=== PATIENT | female | born 1950 | race African-American/Black ===

== ENCOUNTER 2021-01-17 09:22 | Outpatient (CLI) | payer MEDICARE, SELFPAY ==
[2021-01-17 09:56] LABS: Basophils Percent Auto 0.5 % (0.2-1.2); Eosinophils Absolute Auto 0.4 K/mm3 (0-0.3); Eosinophils Percent Auto 5.2 % (0-4.4); Hematocrit 41.9 % (37.0-47.0); Hemoglobin 13.2 g/dL (12.0-15.0); Immature Granulocyte Absolute 0.02 K/mm3 (0.00-0.031); Immature Granulocyte Percent A 0.3 % (0-0.5); Lymphocytes Absolute Auto 2.86 K/mm3 (0.9-3.2); Lymphocytes Percent Auto 37.3 % (18.3-44.2); Mean Corpuscular HGB Conc 31.5 g/dl (32-36); Mean Corpuscular Hemoglobin 29.3 pg (26-34); Mean Corpuscular Volume 93.1 fl (80-100); Monocytes Absolute Auto 0.8 K/mm3 (0.1-0.6); Neutrophils Absolute Auto 3.5 K/mm3 (1.3-6.7); Neutrophils Percent Auto 45.7 % (45.5-73.1); Platelet Count Result 193 k/mm3 (150-375); Red Cell Distribution Width 15.1 % (11.5-14.5); White Blood Count 7.7 K/mm3 (4.5-10.0)
[2021-01-17 10:26] LABS: Alanine Aminotransferase 26 U/L (4-35); Albumin Level 4.4 g/dL (3.5-5.1); Alkaline Phosphatase 79 U/L (38-126); Anion Gap 4 mmol/L (8-16); Aspartate Amino Transferase 36 U/L (14-36); Bilirubin,Total 0.4 mg/dL (0.2-1.3); Blood Urea Nitrogen 21 mg/dL (7-17); Calcium 9.2 mg/dL (8.4-10.2); Carbon Dioxide 35 mmol/L (22-30); Chloride 105 mmol/L (98-107); Cholesterol 195 mg/dL (0-200); Estimated Glomerular Filt Rate > 60; Glucose 107 mg/dL (65-105); HDL Direct 49 mg/dL; Potassium 4.1 mmol/L (3.4-5.0); Sodium 144 mmol/L (137-145); Triglycerides 68 mg/dL (<150)
[2021-01-17 10:40] LABS: LDL Cholesterol Direct 122 mg/dL
[2021-01-17 11:06] LABS: Vitamin D 25 Hydroxy < 12.8 ng/mL
== END 2021-01-17 09:23 | disposition home or self-care (01) ==
LOC: ANHLAB 09:27
PROVIDERS: PCP Family Medicine; Visit Provider Family Medicine
DX: G47.419 Narcolepsy without cataplexy (principal); Z00.00 Encounter for general adult medical examination without abnormal findings; E78.5 Hyperlipidemia, unspecified; I10 Essential (primary) hypertension; E55.9 Vitamin D deficiency, unspecified
CPT/HCPCS: 36415; 80053; 80061; 82306; 84443; 85025

== ENCOUNTER 2022-02-14 09:41 | Outpatient (CLI) | payer MEDICARE, SELFPAY ==
--- NOTE | 2022-02-14 10:17 | ECHO_ITS ---
Patient Info Name: Peggy Weston Age: 71 years : 1950 Gender: Female Ht: 65 in Wt: 208 lbs BSA: 2.12 m2 HR: 81 bpm BP: 135 / 74 mmHg Technical Quality: Good Exam Date: 02/14/2022 10:36 AM Exam Location: [facility] Patient Status: Outpatient Admit Date: 02/14/2022 Staff Ordering Physician: Reynaldo Dowell DO Solution Make Up Operator: Atilio Lagos RDCS, RT Attending Provider: Reynaldo Dowell DO Referring Physician: Jose F Farmer MD; Exam Type: CA echo doppler color flow Study Info Indications I48.0 - Paroxysmal atrial fibrillation Complete two-dimensional, color flow and Doppler transthoracic echocardiogram is performed. Strain analysis performed. Summary 1. Complete two-dimensional, color flow and Doppler transthoracic echocardiogram is performed. 2. Left ventricular chamber dimension is normal. 3. Left ventricular systolic function is normal, estimated at 60-65%. 4. There is mildly increased left ventricular wall thickness. 5. The left ventricular diastolic function is grade II diastolic dysfunction. 6. E/e' 9 is minimally elevated. 7. Global longitudinal strain is abnormal at -12.4%. 8. Left atrial chamber dimension is mildly enlarged. 9. The mitral valve has moderately calcified annulus. 10. There is moderate tricuspid valve regurgitation. 11. No pulmonary hypertension, estimated pulmonary arterial systolic pressure is 36 mmHg. Left Ventricle E/e' 9 is minimally elevated. Global longitudinal strain is abnormal at -12.4%. Left ventricular chamber dimension is normal. Left ventricular systolic function is normal, estimated at 60-65%. There is mildly increased left ventricular wall thickness. The left ventricular diastolic function is grade II diastolic dysfunction. Right Ventricle Right ventricular systolic function is normal and with normal TAPSE 2.2 cm. Right ventricular chamber dimension is normal. Left Atria Left atrial chamber dimension is mildly enlarged. Right Atria Right atrial chamber dimension is normal. Aortic Valve The aortic valve is trileaflet. There is no aortic valve stenosis. There is no aortic valve regurgitation. Pulmonic Valve There is no pulmonic regurgitation. Mitral Valve The mitral valve has moderately calcified annulus. There is no mitral valve stenosis. There is no mitral valve regurgitation. Tricuspid Valve There is moderate tricuspid valve regurgitation. No pulmonary hypertension, estimated pulmonary arterial systolic pressure is 36 mmHg. Pericardium/Pleural There is no pericardial effusion. Inferior Vena Cava Normal inferior vena cava with >50% collapse upon inspiration consistent with normal right atrial pressure, 5 mmHg. Aorta The aortic root size at the sinus of Valsalva is normal. Left Ventricular Outflow Tract Name Value Normal LVOT 2D LVOT Diameter 2.0 cm LVOT Doppler LVOT Peak Gradient 5 mmHg LVOT Mean Gradient 3 mmHg LVOT VTI 22 cm LVOT VTI/AV VTI Ratio 0.8 LVOT Stroke Volume
== END 2022-02-14 09:42 | disposition home or self-care (01) ==
PROVIDERS: PCP Family Medicine; Visit Provider Internal Medicine Cardiovascular Disease
DX: I48.0 Paroxysmal atrial fibrillation (principal); I08.1 Rheumatic disorders of both mitral and tricuspid valves
CPT/HCPCS: 93306

== ENCOUNTER 2022-05-03 12:07 | Outpatient (CLI) | payer MEDICARE, SELFPAY ==
--- NOTE | ~2022-05-03 | XR_ITS ---
EXAM: XR hip BI 2V w AP pelvis DATE: 05/03/2022 12:29 HISTORY: M25.551 - Pain, BILATERAL HIP, NO TRAUMA . COMPARISON: None available. FINDINGS: Normal mineralization. No fracture or dislocation. No lytic or blastic lesion. Degenerativ e changes in the lumbar spine. Mild bilateral SI joint change. Mild bilateral superior hip joint spac e narrowing. No erosion or periosteal change. Soft tissues within normal limits. IMPRESSION: Mild bilateral hip osteoarthritis. Reviewed, dictated and finalized at location K.
== END 2022-05-03 12:08 | disposition home or self-care (01) ==
LOC: ANHIMG 12:07
PROVIDERS: PCP Family Medicine; Visit Provider Family Medicine
DX: M16.0 Bilateral primary osteoarthritis of hip (principal)
CPT/HCPCS: 73521

== ENCOUNTER 2022-05-05 10:42 | Outpatient (CLI) | payer MEDICARE, SELFPAY ==
--- NOTE | ~2022-05-05 | MM_ITS ---
EXAMINATION: MM screening [facility] BI w [place] HISTORY: Screening mammogram, family history of breast cancer in her sister. TECHNIQUE: Craniocaudal and mediolateral oblique 3-D tomosynthesis images were obtained and synthetic 2-D images were generated. CAD analysis was submitted and interpreted. COMPARISON: 08/24/2019, 07/09/2018, 05/28/2017 BREAST PARENCHYMAL COMPOSITION: There are scattered areas of fibroglandular density. FINDINGS: RIGHT BREAST: There is no suspicious mass, calcification, or architectural distortion to suggest edith gnancy. There has been no significant interval change. LEFT BREAST: There is a possible mass in the anterior/middle third of the upper-outer quadrant of the breast 6.5 cm from the nipple. IMPRESSION: 1. Possible left breast mass. 2. Additional mammographic views and possible breast ultrasound are recommended. BI-RADS Category 0: Incomplete: Needs additional imaging evaluation. Reviewed, dictated and finalized at location A. IMPRESSION: 1. Possible left breast mass. 2. Additional mammographic views and possible breast ultrasound are recommended . BI-RADS Category 0: Incomplete: Needs additional imaging evaluation.
== END 2022-05-05 10:43 | disposition home or self-care (01) ==
LOC: ANHIMG 10:43
PROVIDERS: PCP Family Medicine; Visit Provider Family Medicine
DX: Z12.31 Encounter for screening mammogram for malignant neoplasm of breast (principal); R92.8 Other abnormal and inconclusive findings on diagnostic imaging of breast
CPT/HCPCS: 77063; 77067

== ENCOUNTER 2022-05-23 12:38 | Outpatient (CLI) | payer MEDICARE, SELFPAY ==
--- NOTE | ~2022-05-23 | MMUS_ITS ---
EXAMINATION: MM diagnostic ricci LT w [place], US breast LT limited HISTORY: Possible mass reported in anterior/middle third of upper outer quadrant of left breast 6.5 c m from nipple on 05/05/2022 screening mammogram TECHNIQUE: Additional 3-D tomosynthesis images of the left breast were performed and synthetic 2-D im ages were generated. CAD analysis was submitted and interpreted. High resolution upper outer quadrant left breast ultrasound was performed. COMPARISON: 05/05/2022 screening mammogram FINDINGS: MAMMOGRAPHIC FINDINGS: Circumscribed approximately 3.5 x 5.9 mm opacity is noted in the upper outer quadrant near junction o f the anterior middle thirds of the left breast. ULTRASOUND:3.7 x 5.5 mm parallel circumscribed sonolucency at 3:00, consistent with simple cyst, like ly corresponding to the mammographic finding. Benign-appearing left axillary lymph nodes are noted. IMPRESSION: 1. Benign findings 2. Routine mammographic screening is recommended BI-RADS Category 2: Benign finding(s). Reviewed, dictated and finalized at location A. IMPRESSION: 1. Benign findings 2. Routine mammographic screening is recommended BI-RADS Category 2: Benign finding(s).
== END 2022-05-23 12:39 | disposition home or self-care (01) ==
PROVIDERS: PCP Family Medicine; Visit Provider Nurse Practitioner
DX: R92.8 Other abnormal and inconclusive findings on diagnostic imaging of breast (principal)
CPT/HCPCS: 76642; 77061; 77065; G0279

== ENCOUNTER → 2022-06-04 12:00 | Outpatient (CLI) | payer MEDICARE, SELFPAY ==
--- NOTE | ~2022-06-04 | DEXA_ITS ---
Bone Density Report Name: ANNA LEE Age: 72 Sex: Female Ethnicity: Black Date of : 1950 Indication: postmenopausal; screening for osteoporosis; height loss; hysterectomy; Referring Provider: Darío Adams Study: Bone densitometry was performed. Exam Date: June 04, 2022 Accession number: [id number] Bone Density: Region BMD T-score Z-score Classification AP Spine (L1-L4) 1.168 1.1 2.7 Normal Femoral Neck (Left) 0.921 0.6 1.3 Normal Total Hip (Left) 1.106 1.3 1.7 Normal Femoral Neck (Right) 0.970 1.1 1.6 Normal Total Hip (Right) 1.098 1.3 1.6 Normal Total Hip Mean 1.102 1.3 1.7 Normal World Health Organization criteria for BMD impression classify patients as: Normal (T-score at or above -1.0), Osteopenia (T-score between -1.0 and -2.5), or Osteoporosis (T-score at or below -2.5). 10-year Fracture Risk: FRAX not reported because: All T-scores for Spine Total, Hip Total, Femoral Neck at or above -1.0 Clinical Information Provided by Patient: Has used the following medications: Vitamin D Has the following medical conditions: Hysterectomy, NARCOLEPSY Patient maximum height was 67.5 Menopause Age: 39 Onset of menses at age 10 Number of children 1 Impression: The patient has normal bone mass. Discussion: BONE DENSITY IS ABOVE THE MINIMUM DESIRABLE LEVEL AT ALL SKELETAL SITES TESTED. This patient?s bone mineral density is above the minimum desirable level (T-score -1.0 or better) at all sites measured. The patient should follow a healthful lifestyle (good nutrition with adequate calcium and vitamin D, and appropriate weight-bearing exercise). Follow-Up: Consider repeating this study in 5 years or sooner if there is some new clinical indication. Reported by: AUSTIN on 06/04/2022 12:50:00 PM. Reviewed, dictated and finalized at location AAlayna LINDA
== END ==
PROVIDERS: PCP Student in an Organized Health Care Education/Training Program; Visit Provider Family Medicine
DX: Z78.0 Asymptomatic menopausal state (principal)
CPT/HCPCS: 77080

== ENCOUNTER 2022-09-22 13:57 | Outpatient (CLI) | payer MEDICARE, SELFPAY ==
[2022-09-22 20:27] LABS: Kit Draw Collected
== END 2022-09-22 13:58 | disposition home or self-care (01) ==
LOC: ANHGOSHLAB 13:59
PROVIDERS: PCP Family Medicine; Visit Provider Family Medicine
DX: E78.5 Hyperlipidemia, unspecified (principal); R73.03 Prediabetes; I10 Essential (primary) hypertension; E55.9 Vitamin D deficiency, unspecified; I48.0 Paroxysmal atrial fibrillation
CPT/HCPCS: 36415

== ENCOUNTER 2023-05-19 14:10 | Outpatient (CLI) | payer MEDICARE, SELFPAY ==
[2023-05-19 18:59] LABS: Basophils Percent Auto 0.6 % (0.2-1.2); Eosinophils Absolute Auto 0.4 K/mm3 (0-0.3); Eosinophils Percent Auto 5.8 % (0-4.4); Hematocrit 42.3 % (37.0-47.0); Hemoglobin 13.3 g/dL (12.0-15.0); Immature Granulocyte Absolute 0.02 K/mm3 (0.00-0.031); Immature Granulocyte Percent A 0.3 % (0-0.5); Lymphocytes Absolute Auto 1.66 K/mm3 (0.9-3.2); Lymphocytes Percent Auto 24.8 % (18.3-44.2); Mean Corpuscular HGB Conc 31.4 g/dl (32-36); Mean Corpuscular Volume 92.2 fl (80-100); Mean Platelet Volume 10.5 fl (7.4-10.4); Monocytes Absolute Auto 0.8 K/mm3 (0.1-0.6); Monocytes Percent Auto 11.3 % (2.6-8.5); Neutrophils Absolute Auto 3.8 K/mm3 (1.3-6.7); Neutrophils Percent Auto 57.2 % (45.5-73.1); Platelet Count Result 181 k/mm3 (150-375); Red Blood Count 4.59 M/mm3 (4.2-5.4); Red Cell Distribution Width 14.6 % (11.5-14.5); White Blood Count 6.7 K/mm3 (4.5-10.0)
[2023-05-19 20:04] LABS: Alanine Aminotransferase 23 U/L (6-35); Albumin Level 4.3 g/dL (3.5-5.1); Alkaline Phosphatase 78 U/L (38-126); Anion Gap 5 mmol/L (8-16); Aspartate Amino Transferase 43 U/L (14-36); Bilirubin,Total 0.6 mg/dL (0.2-1.3); Blood Urea Nitrogen 14 mg/dL (7-17); Calcium 8.6 mg/dL (8.4-10.2); Carbon Dioxide 34 mmol/L (22-30); Chloride 101 mmol/L (98-107); Cholesterol 201 mg/dL (0-200); Estimated Glomerular Filt Rate > 60; Glucose 96 mg/dL (65-110); HDL Direct 47 mg/dL; Potassium 3.5 mmol/L (3.4-5.0); Sodium 140 mmol/L (137-145); Triglycerides 65 mg/dL (<150)
[2023-05-19 20:14] LABS: LDL Cholesterol Direct 125 mg/dL
[2023-05-19 20:24] LABS: Vitamin D 25 Hydroxy 44.2 ng/mL
== END 2023-05-19 14:11 | disposition home or self-care (01) ==
LOC: ANHGOSHLAB 14:12
PROVIDERS: PCP Family Medicine; Visit Provider Family Medicine
DX: I10 Essential (primary) hypertension (principal); E11.9 Type 2 diabetes mellitus without complications; I48.0 Paroxysmal atrial fibrillation; E78.5 Hyperlipidemia, unspecified; E55.9 Vitamin D deficiency, unspecified; E53.8 Deficiency of other specified B group vitamins
CPT/HCPCS: 36415; 80053; 80061; 82306; 82607; 83036; 84443; 85025

== ENCOUNTER 2023-06-23 13:16 | Outpatient (CLI) | payer MEDICARE, SELFPAY | END 2023-06-23 13:17 | disposition home or self-care (01) | PROVIDERS: PCP Family Medicine; Visit Provider Family Medicine | DX: H90.3 Sensorineural hearing loss, bilateral (principal) | CPT/HCPCS: 92557; 92567 ==

== ENCOUNTER → 2023-08-11 13:58 | Outpatient (CLI) | payer MEDICARE, SELFPAY ==
--- NOTE | ~2023-08-11 | US_ITS ---
US soft tissue head and neck 08/11/2023 14:29 Indication: Localized swelling. Palpable neck abnormality. Procedure: High-resolution Limited ultrasound of the right supraclavicular soft tissues Comparison: No prior studies for comparison. Findings: 4 right supra clavicular masses are identified, consistent with lymph nodes, largest measur ing 9 x 8 x 5 mm. There is effacement of the fatty hilum of the lymph nodes. Impression: 1: Atypical appearing right supraclavicular lymphadenopathy measuring up to 9 mm. If there is a histo ry of malignancy, consider percutaneous biopsy. Reviewed, dictated and finalized at location B. NSED PLUMBER Impression: 1: Atypical appearing right supraclavicular lymphadenopathy measuring up to 9 m m. If there is a history of malignancy, consider percutaneous biopsy.
== END ==
PROVIDERS: PCP Family Medicine; Visit Provider Nurse Practitioner Family
DX: R59.0 Localized enlarged lymph nodes (principal)
CPT/HCPCS: 76536

== ENCOUNTER → 2023-08-25 08:20 | Outpatient (CLI) | payer MEDICARE, SELFPAY ==
--- NOTE | ~2023-08-25 | CT_ITS ---
Clinical Indication: Lymphadenopathy CT Scan of the Chest and Abdomen with Contrast: Technique: Contiguous sections were acquired throughout the chest and abdomen after intravenous admin istration of 100 cc of Omnipaque 350. Dose reduction technique was used on this scan by utilizing au tomated exposure control and iterative reconstruction technique. The dose-length product (DLP) was 81 5.21 mGy-cm. Findings: Small hypodense thyroid nodules are noted. Shotty mediastinal and hilar lymph nodes are present. Minimal prominent bilateral axillary lymph node s are present, with preserved fatty nan and otherwise normal morphology. The mediastinal vascular st ructures appear normal. There is no evidence of pleural or pericardial effusion. 7 mm irregular pulmonary nodule noted in the inferior right upper lobe (axial image 43). 3 mm lingula r nodule noted. Multiple hepatic cysts are present. The spleen, pancreas, gallbladder, adrenals and kidneys are withi n normal limits. No evidence of aortic aneurysm. There are numerous mildly enlarged retroperitoneal lymph nodes. There are shotty epigastric lymph nodes in the gastrohepatic region. Probable mildly enl arged abbie hepatis lymph nodes are present. Visualized bowel loops are unremarkable. No ascites. Impression: Numerous mildly enlarged retroperitoneal lymph nodes, with additional minimally prominent axillary ly mph nodes, and probable mildly enlarged epigastric and abbie hepatis lymph nodes. Findings are suspic ious for lymphoma. Correlate clinically. Consider tissue sampling to establish a histologic diagnosis . 7 mm irregular pulmonary nodule the right upper lobe. According to Fleischner Society criteria, for a low-risk patient, no further follow-up required. For a high-risk patient, consider 12 month follow-u p CT. Reviewed, dictated and finalized at [facility]. STRIPPER Impression: Numerous mildly enlarged retroperitoneal lymph nodes, with additional minimally prominent axillary lymph nodes, and probable mildly enlarged epigastric and po rta hepatis lymph nodes. Findings are suspicious for lymphoma. Correlate clinic ally. Consider tissue sampling to establish a histologic diagnosis. 7 mm irregular pulmonary nodule the right upper lobe. According to Fleischner S ociety criteria, for a low-risk patient, no further follow-up required. For a h igh-risk patient, consider 12 month follow-up CT.
[2023-08-25 08:44] LABS: Estimated Glomerular Filt Rate > 60
== END ==
PROVIDERS: PCP Family Medicine; Visit Provider Family Medicine
DX: R59.0 Localized enlarged lymph nodes (principal)
CPT/HCPCS: 71260; 74160; Q9967

== ENCOUNTER 2023-08-25 09:04 | Outpatient (CLI) | payer MEDICARE, SELFPAY ==
[2023-08-25 11:48] LABS: Basophils Percent Auto 0.6 % (0.2-1.2); Eosinophils Absolute Auto 0.4 K/mm3 (0-0.3); Hematocrit 39.3 % (37.0-47.0); Hemoglobin 12.5 g/dL (12.0-15.0); Immature Granulocyte Absolute 0.02 K/mm3 (0.00-0.031); Immature Granulocyte Percent A 0.3 % (0-0.5); Lymphocytes Absolute Auto 2.16 K/mm3 (0.9-3.2); Lymphocytes Percent Auto 32.1 % (18.3-44.2); Mean Corpuscular HGB Conc 31.8 g/dl (32-36); Mean Corpuscular Volume 91.2 fl (80-100); Mean Platelet Volume 10.5 fl (7.4-10.4); Monocytes Absolute Auto 0.7 K/mm3 (0.1-0.6); Monocytes Percent Auto 10.6 % (2.6-8.5); Neutrophils Absolute Auto 3.4 K/mm3 (1.3-6.7); Neutrophils Percent Auto 50.4 % (45.5-73.1); Platelet Count Result 179 k/mm3 (150-375); Red Blood Count 4.31 M/mm3 (4.2-5.4); Red Cell Distribution Width 14.8 % (11.5-14.5); White Blood Count 6.7 K/mm3 (4.5-10.0)
[2023-08-25 11:56] LABS: Alanine Aminotransferase 19 U/L (6-35); Albumin Level 3.9 g/dL (3.5-5.1); Alkaline Phosphatase 97 U/L (38-126); Anion Gap 7 mmol/L (8-16); Aspartate Amino Transferase 45 U/L (14-36); Bilirubin,Total 0.4 mg/dL (0.2-1.3); Blood Urea Nitrogen 15 mg/dL (7-17); Calcium 8.6 mg/dL (8.4-10.2); Carbon Dioxide 29 mmol/L (22-30); Chloride 102 mmol/L (98-107); Estimated Glomerular Filt Rate > 60; Glucose 106 mg/dL (65-110); Potassium 3.3 mmol/L (3.4-5.0); Sodium 138 mmol/L (137-145)
[2023-08-25 12:16] LABS: Hemoglobin A1C 6.3 % (<5.7)
== END 2023-08-25 09:05 | disposition home or self-care (01) ==
LOC: ANHGOSHLAB 09:05
PROVIDERS: PCP Family Medicine; Visit Provider Family Medicine
DX: R59.0 Localized enlarged lymph nodes (principal); I10 Essential (primary) hypertension; R73.03 Prediabetes
CPT/HCPCS: 36415; 80053; 83036; 85025

== ENCOUNTER → 2023-09-15 10:24 | Outpatient (CLI) | payer MEDICARE, SELFPAY ==
--- NOTE | ~2023-09-15 | CT_ITS ---
CT of the Pelvis: Indication: Pain, adenopathy Technique: 2.5 mm axial scans were obtained through the pelvis following intravenous administration of 100 cc of Omnipaque 350. Dose reduction technique was used on this scan by utilizing automated exp osure control and iterative reconstruction technique. The dose-length product (DLP) was 781.97 mGy-cm . Findings: There is extensive retroperitoneal/periaortic lymphadenopathy, with additional bilateral pe lvic sidewall lymphadenopathy/external iliac chain lymphadenopathy. There are additional enlarged lym ph nodes along the bilateral common iliac chains as well. No aortic aneurysm. There are mild atherosc lerotic calcifications of the aorta. Large bowel loops are unremarkable. No bowel wall thickening of bowel obstruction seen. Urinary bladder seen. No adnexal mass evident. No ascites. Impression: Extensive retroperitoneal lymphadenopathy with additional involvement of the common and external monique c chains. Findings are suspicious for lymphoma versus possibly other metastatic disease. Reviewed, dictated and finalized at [facility]. 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 Findings are suspicious for lymphoma versus pos sibly other metastatic disease.
== END ==
PROVIDERS: PCP Family Medicine; Visit Provider Internal Medicine Hematology & Oncology
DX: R59.0 Localized enlarged lymph nodes (principal)
CPT/HCPCS: 72193; Q9967

== ENCOUNTER 2023-09-28 14:47 | Outpatient (CLI) | payer MEDICARE, SELFPAY ==
--- NOTE | ~2023-09-28 | MM_ITS ---
EXAMINATION: MM screening [facility] BI w [place] HISTORY: Screening mammogram, family history of breast cancer in her sister. TECHNIQUE: Craniocaudal and mediolateral oblique 3-D tomosynthesis images were obtained and synthetic 2-D images were generated. CAD analysis was submitted and interpreted. COMPARISON: 05/23/2022, 05/05/2022, 08/24/2019 BREAST PARENCHYMAL COMPOSITION: There are scattered areas of fibroglandular density. FINDINGS: There is chronic right breast architectural distortion, consistent with prior excisional bi opsy. No suspicious mass, calcification, or architectural distortion are identified in either breast to suggest malignancy. There has been no suspicious interval change. IMPRESSION: 1. No mammographic evidence of malignancy. 2. Recommend routine screening mammography in one year. BI-RADS Category 2: Benign finding(s). Reviewed, dictated and finalized at location A. GENICS ENGINEER
== END 2023-09-28 14:48 | disposition home or self-care (01) ==
PROVIDERS: PCP Family Medicine; Visit Provider Family Medicine
DX: Z12.31 Encounter for screening mammogram for malignant neoplasm of breast (principal)
CPT/HCPCS: 77063; 77067

== ENCOUNTER 2023-10-05 08:39 | Outpatient (CLI) | payer MEDICARE, SELFPAY ==
--- NOTE | ~2023-10-05 | US_ITS ---
EXAMINATION: US biopsy lymph node DATE: 10/05/2023 11:53 INDICATION: Lymphadenopathy. Lymphoma. TECHNIQUE: The procedure including the risks, benefits, and alternatives was discussed with the patie nt. Risks discussed included bleeding and infection. The patient understood the risks and agreed to p roceed. The skin overlying the right inguinal region was prepped and draped in usual sterile fashion. Anesthetic was administered with 1% lidocaine subcutaneously. An 18 gauge core biopsy needle was t hen used to obtain 6 core biopsy specimens under continuous sonographic guidance. The entry site was cleaned and dressed. There were no immediate complications. FINDINGS: Ultrasound images demonstrate the needle in a 3.2 x 0.8 cm inguinal lymph node. IMPRESSION: 1. Ultrasound-guided core needle biopsy of a right inguinal lymph node. Reviewed, dictated and finalized at location A. TH INSPECTOR FOOD
--- NOTE | 2023-10-05 09:24 | SUR.PREOP ---
US staff called by this RN to inform patient drove self here and unsure of ride home, per staff states Dr Morales ok to proceed
[2023-10-05 09:43] VITALS: BMI 33.7
[2023-10-05 09:44] VITALS: BP 126/76; PULSE 75; RESP 16; TEMP 37; O2SAT 99
[2023-10-05 10:05] LABS: Platelet Count Result 197 k/mm3 (150-375)
[2023-10-05 10:11] LABS: Prothrombin Time 13.7 Seconds (11.1-14.7)
== END 2023-10-05 08:40 | disposition home or self-care (01) ==
PROVIDERS: PCP Family Medicine; Referring Provider Internal Medicine Hematology & Oncology; Visit Provider Radiology Diagnostic Radiology
PROC: (CPT 76942; principal; 2023-10-05 10:30)
DX: R59.0 Localized enlarged lymph nodes (principal)
CPT/HCPCS: 36415; 38505; 76942; 85049; 85610; 88108; 88184; 88185; 88305

== ENCOUNTER 2024-01-08 10:50 | Outpatient (CLI) | payer MEDICARE, SELFPAY ==
--- NOTE | ~2024-01-08 | US_ITS ---
EXAMINATION: US venous doppler [facility] DATE: 01/08/2024 11:47 INDICATION: Unilateral lower limb pain and swelling TECHNIQUE: Grayscale ultrasound images without and with compression and Doppler ultrasound images of the bilateral lower extremity veins were obtained. COMPARISON: None. FINDINGS: The visualized portions of right common femoral vein, profunda (deep) femoral vein, femoral vein, pop liteal vein, posterior tibial veins, peroneal veins, gastrocnemius vein and greater saphenous vein ou tflow are patent. The visualized portions of left common femoral vein, profunda femoral vein, femoral vein, popliteal v ein, posterior tibial veins, peroneal veins, gastrocnemius vein and greater saphenous vein outflow ar e patent. Multiple bilateral shotty inguinal lymph nodes with typical central fatty nan and measuring up to 10 mm in maximal short axis diameter which remains within normal limits. IMPRESSION: 1. No deep venous thrombosis in either lower limb. Reviewed, dictated and finalized at location A.
== END 2024-01-08 10:51 | disposition home or self-care (01) ==
PROVIDERS: PCP Family Medicine; Visit Provider Nurse Practitioner Family
DX: M79.651 Pain in right thigh (principal); M25.551 Pain in right hip; M79.652 Pain in left thigh; R20.0 Anesthesia of skin; R20.2 Paresthesia of skin
CPT/HCPCS: 93970

== ENCOUNTER 2024-04-18 12:31 | Outpatient (CLI) | payer MEDICARE, SELFPAY ==
[2024-04-18 14:42] LABS: Basophils Percent Auto 0.4 % (0.2-1.2); Eosinophils Absolute Auto 0.4 K/mm3 (0-0.3); Eosinophils Percent Auto 5.5 % (0-4.4); Hematocrit 39.2 % (37.0-47.0); Hemoglobin 12.5 g/dL (12.0-15.0); Immature Granulocyte Absolute 0.02 K/mm3 (0.00-0.031); Immature Granulocyte Percent A 0.3 % (0-0.5); Lymphocytes Absolute Auto 1.63 K/mm3 (0.9-3.2); Lymphocytes Percent Auto 24.3 % (18.3-44.2); Mean Corpuscular HGB Conc 31.9 g/dl (32-36); Mean Corpuscular Hemoglobin 29.8 pg (26-34); Mean Corpuscular Volume 93.3 fl (80-100); Mean Platelet Volume 10.6 fl (7.4-10.4); Monocytes Absolute Auto 0.9 K/mm3 (0.1-0.6); Monocytes Percent Auto 12.8 % (2.6-8.5); Neutrophils Absolute Auto 3.8 K/mm3 (1.3-6.7); Neutrophils Percent Auto 56.7 % (45.5-73.1); Platelet Count Result 200 k/mm3 (150-375); Red Cell Distribution Width 15.1 % (11.5-14.5); White Blood Count 6.7 K/mm3 (4.5-10.0)
[2024-04-18 20:07] LABS: Alanine Aminotransferase 20 U/L (6-35); Albumin Level 4.2 g/dL (3.5-5.1); Alkaline Phosphatase 77 U/L (38-126); Anion Gap 8 mmol/L (4-12); Aspartate Amino Transferase 46 U/L (14-36); Bilirubin,Total 0.6 mg/dL (0.2-1.3); Blood Urea Nitrogen 15 mg/dL (7-17); Carbon Dioxide 30 mmol/L (22-30); Chloride 101 mmol/L (98-107); Estimated Glomerular Filt Rate > 60; Glucose 107 mg/dL (65-110); Lactate Dehydrogenase 282 U/L (120-246); Potassium 3.8 mmol/L (3.4-5.0); Sodium 139 mmol/L (137-145)
== END 2024-04-18 12:32 | disposition home or self-care (01) ==
PROVIDERS: PCP Family Medicine; Visit Provider Internal Medicine Hematology & Oncology
DX: C91.10 Chronic lymphocytic leukemia of B-cell type not having achieved remission (principal)
CPT/HCPCS: 36415; 80053; 83615; 85025

== ENCOUNTER 2024-05-26 15:08 | Outpatient (CLI) | payer MEDICARE, SELFPAY ==
[2024-05-26 19:21] LABS: Cholesterol 177 mg/dL (0-200); HDL Direct 46 mg/dL; Triglycerides 66 mg/dL (<150)
[2024-05-26 19:32] LABS: LDL Cholesterol Direct 116 mg/dL
[2024-05-26 20:27] LABS: Vitamin D 25 Hydroxy 12.9 ng/mL
[2024-05-26 20:39] LABS: Hepatitis C Virus Antibody Negative (Negative)
[2024-05-26 21:12] LABS: Hemoglobin A1C 6.5 % (<5.7)
== END 2024-05-26 15:09 | disposition home or self-care (01) ==
LOC: ANHGOSHLAB 15:09
PROVIDERS: PCP Family Medicine; Visit Provider Family Medicine
DX: R73.03 Prediabetes (principal); I10 Essential (primary) hypertension; E78.5 Hyperlipidemia, unspecified; E53.8 Deficiency of other specified B group vitamins; E55.9 Vitamin D deficiency, unspecified; Z11.59 Encounter for screening for other viral diseases
CPT/HCPCS: 36415; 80061; 82306; 82607; 83036; 84443; 86803

== ENCOUNTER 2024-07-07 13:04 | Outpatient (CLI) | payer MEDICARE, SELFPAY | END 2024-07-07 13:05 | disposition home or self-care (01) | LOC: ANHAUDASC 13:05 | PROVIDERS: PCP Family Medicine; Visit Provider Family Medicine | DX: H90.3 Sensorineural hearing loss, bilateral (principal) | CPT/HCPCS: 92557; 92567 ==

== ENCOUNTER 2024-10-25 12:57 | Outpatient (CLI) | payer MEDICARE, SELFPAY ==
--- OUTSIDE RECORDS SUMMARY | 2024-10-25 13:02 | XMS_ITS | Referral Summary ---
Author Organization [facility] [address] Address [address] [place] [address] Care Team Providers Care Library Circulation Assistant Name Role Phone Viviana Adams MD Primary Care Provider Allergies Active Allergy Reactions Criticality Noted Date Comments Clindamycin Medications aspirin 325 mg capsule Take 325 mg by mouth daily Active UNABLE TO FIND arnicare gel Ac tive meloxicam (MOBIC) 7.5 mg tablet Take 1 tablet (7.5 mg total) by mouth as needed Active cholecalciferol , vitamin D3, (VITAMIN D3 ORAL) Take 250 mcg by mouth once a week Active oxyBUTYnin XL (DITROPAN-XL) 10 mg 24 hr tablet Take 1 tablet (10 mg total) by mouth daily 03/21/2023 Active metoprolol XL (TOPROL-XL) 25 mg extended release tablet Take 1 tablet (25 mg total) by mouth daily 03/21/2023 Active hydroCHLOROthia zide (HYDRODIURIL) 25 mg tablet Take 1 tablet (25 mg total) by mouth daily Active cyanocobalamin (vitamin B-12) 1,000 mcg tabletIndicatio ns:Prevention of Vitamin B12 Deficiency Take 1 tablet (1,000 mcg total) by mouth once a week Active modafiniL (ProvigiL) 200 mg tabletIndicatio ns:Narcolepsy Syndrome Take 2 tablets (400 mg total) by mouth daily 180 tablet 1 04/05/2024 Active Active Problems Problem Noted Date Diagnosed Date Jaw pain 06/16/2017 Hypertension 10/04/2012 Obesity 10/04/2012 Obstructive sleep apnea syndrome 03/13/2011 Narcoleptic syndrome 10/15/2009 Social History Tobacco Use Types Packs/Day Years Used Date Smoking Tobacco: Never Smokeless Tobacco: Never Tobacco Cessation:Counseling Given: Not Answered Comments Unknown Sex and Gender Information Value Date Recorded Sex Assigned at Not on file 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 Gender Identity Not on file Sexual Orientation Not on file Last Filed Vital Signs Vital Sign Reading Time Taken Comments Blood Pressure 126/87 05/31/2024 1:31 PM CDT Pulse 66 05/31/2024 1:31 PM CDT Temperature 36.8 C (98.2 F) 05/31/2024 1:31 PM CDT Respiratory Rate - - Oxygen Saturation 98% 05/31/2024 1:31 PM CDT Inhaled Oxygen Concentration - - Weight 95 kg (209 lb 8 oz) 05/31/2024 1:31 PM CD T Height 165.1 cm (5' 5 ) 05/31/2024 1:31 PM CDT Body Mass Index 34.86 05/31/2024 1:31 PM CDT Plan of Treatment Not on file Insurance [employer] [facility] [place] Care Teams Library Circulation Assistant Relationship Specialty Start Date End Date Viviana Adams MD PCP - General Family Practice 12/31/21
--- OUTSIDE RECORDS SUMMARY | 2024-10-25 13:02 | XMS_ITS | Encounter Summary ---
Author Organization [facility] Address [address] [place] [address] Care Team Providers Care Geographic Information System Surveyor Name Role Phone Unavailable Primary Care Provider Unavailabl e Encounter Details Date Type Department Care Team (Late st Contact Info) Description 10/05/2023 Lab Requisition [facility] - Pathology Lab [address] [place] [address] Rick Gallo MD [address] [place] [id number] Localized enlarged lymph nodes Social History Tobacco Use Types Packs/Day Years Used Date Smoking Tobacco: Never Assessed Sex and Gender Information Value Date Recorded Sex Assigned at Not on file Gender Identity Not on file Sexual Orientation Not on file documented as of this encounter Plan of Treatment Not on file documented as of this encounter Procedures Procedure Name Priority Date/Time Associated Diagnosis Comments FLOW CYTOMETRY TISSUE PANEL Routine 10/05/2023 11:47 AM TOE PULLER Localized enlarged lymph nodes documented in this encounter Results * FLOW CYTOMETRY TISSUE PANEL (10/05/2023 11:47 AM TOE PULLER) Case Report Flow Cytometry Case: [id number] Authorizing Provider: Collected: 10/05/2023 11:47 AM Ordering Location: [facility] Care Pathology Lab Received: 10/05/2023 03:50 PM Pathologist: Ana Zaragoza MD Specimen: Lymph Node, R INGUINAL 10/05/2023 5:13 PM TOE PULLER [facility] Final Diagnosis Lymph node, right inguinal, flow cytometric immunophenotypic analysis: - Mature B-cell lymphoma - See interpretation 10/05/2023 5:13 PM TOE PULL[facility] Flow Cytometry Interpretation Viability: 75% B-cells: monoclonal, kappa-restricted, express CD19 and CD20. The cells lack significant expression of CD5, CD10, and CD23. This population comprises 63.7% of events. T-cells: no immunophenotypic aberrancy detected CD4:CD8 ratio 8:1 with limited T-cells present in sample. A cytospin prepared from the flow cytometry specimen has been reviewed for vice president quality assurance purposes. 10/05/2023 5:13 PM [facility] Flow Cytometry Results Differential Result Comment Flow Cell Count /uL 80 Total Viability % 75.0 Lymphocytes % 91 Dim CD45 Region % 0 Monocytes % 1 Granulocytes % 6 10/05/2023 5:13 PM [facility] Reason for test Localized enlarged lymph nodes 785.6 10/05/2023 5:13 PM [facility] Client Specimen ID # [id number] 10/05/2023 5:13 PM [facility] Number of markers 16 were performed. A-2 Flow CD3 A-4 Flow CD10 A-6 Flow CD20 A-7 Flow CD23 A-12 Flow CD2 A-13 Flow CD4 A-16 Flow CD1a A-3 Flow CD5 A-5 Flow CD19 A-8 Flow CD34 A-9 Flow CD45 A-14 Flow CD7 A-15 Flow CD8 A-17 Flow CD30 A-10 [place]+CD19+ A-11 Lambda+CD19+ 10/05/2023 5:13 PM [facility] Pathologist Location at [facility] 10/05/2023 5:13 PM [facility] Disclaimer Test performed at [facility], [address] [place] [address], [id number]. *The established laboratory minimum viability is 70%. Values below the minimum may result in the failure to find an abnormal population of cells. This test was developed and its performance characteristics determined by the Flow Cytometry Laboratory. It has not been cleared by the [place] Food and Drug Administration (FDA). The FDA has determined that such clearance or approval is not necessary. This test is used for clinical purposes. It should not be regarded as investigational or for research. This laboratory is regulated under the Clinical Laboratory Improvement Amendments of 1998 (CLIA) as a qualified to perform high complexity clinical testing. 10/05/2023 5:13 PM [facility] Embedded Images 01/29/202 4 5:13 PM TOE PULLER [facility] Pathology/Cytolo gy ENTIRE LYMPH NODE / Unknown 10/05/2023 11:47 AM TOE PULLER 10/05/2023 3:50 PM TOE PULLER Rick Gallo MD LAB - PATHO LOGY/CYTOLOGY ORDERABLES Performing Organization Address City/State/[facility] Co de Phone Number [facility] [address] [phone] documented in this encounter Visit Diagnoses Diagnosis Localized enlarged lymph nodes Enlargement of lymph nodes documented in this encounter
--- OUTSIDE RECORDS SUMMARY | 2024-10-25 13:02 | XMS_ITS | Clinical Summary ---
Author Organization [facility] [address] Address [address] [place] [address] Care Team Providers Care Apn Name Role Phone Viviana Adams MD Primary [...] sleep apnea syndrome 03/13/2011 Narcoleptic syndrome 10/15/2009 Medical History Medical History Date Comments Narcolepsy KAYLEE (obstructive sleep apnea) Hypertension CLL (chronic lymphocytic leukemia) (HCC) Social History Tobacco Use Types Packs/Day Years Used Date Smoking Tobacco: Never Smokeless Tobacco: Never Tobacco Cessation:Counseling Given: Not Answered Comments Unknown Sex and Gender Information Value Date Recorded Sex Assigned at Not on file 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 Gender Identity Not on file Sexual Orientation Not on file Obstetrics History Last Filed Vital Signs Vital Sign Reading [...] 05/31/2024 1:31 PM CDT Plan of Treatment Health Maintenance Due Date Last Done Comments Colon Cancer Screening-Colonoscopy 1949 Depression Screening 1949 Fall Risk Assessment 1949 Hepatitis C Screening 1949 Osteoporosis Screening-Bone Density Scan 1949 Pneumococcal vaccine 65+ (1 of 2 - PCV) 1955 DTaP/Tdap/Td Vaccine (1 - Tdap) 1960 Hepatitis B Screening 1967 Zoster Vaccine (1 of 2) 1968 Well Visit 65+ 2014 Covid-19 Vaccine (3 - Modern a risk series) 12/06/2020 11/08/2020, 10/11/2020 Influenza Vaccine (#1) 2024 Breast Cancer Screening-Mammogram Discontinued 014 [place] [id number] [facility] [place] [address] [facility] MEDIC[facility] Care Teams Apn Relationship Specialty Start Date End Date Viviana Adams MD PCP - General Family Practice 12/31/21
--- OUTSIDE RECORDS SUMMARY | 2024-10-25 13:02 | XMS_ITS | Clinical Summary ---
Author Organization [facility] Address [address] [place] [address] Care Team Providers Care Replanting Machine Operator Name Role Phone Unavailable Primary Care Provider Unavailabl e Social History Tobacco Use Types Packs/Day Years Used Date Smoking Tobacco: Never Assessed Comments Unknown Sex and Gender Information Value Date Recorded Sex Assigned at Not on file Legal Sex Female 8:38 AM ACTIMIZE ARCHITECT Gender Identity Not on file Sexual Orientation Not on file Plan of Treatment Health Maintenance Due Date Last Done Comments Colorectal Cancer Screening Colonoscopy (10 Years) 1949 Hepatitis C 1967 DTaP, Tdap and Td Vaccines ( 1 - Tdap) 1968 Zoster Vaccines (1 of 2) 1999 Annual Medicare Wellness Visit 2014 Dexa Scan (General) 2014 Pneumococcal Vaccine: 65+ Ye ars (1 of 1 - PCV) 2014 RSV Immunization or 60+ Years (1 - 1-dose 75+ series) 2024 COVID-19 Vaccine (1 - 2023-2 5 season) 2024 Influenza Adult (#1) 2024 Meningococcal B Vaccine Aged Out No l onger eligible based on patient's age to complete this topic Meningococcal Vaccine Aged Out No armando hina eligible based on patient's age to complete this topic RSV Immunizations Under 20 Months Aged Out No longer eligible based on patient's age to complete this topic Insurance AETNA
--- OUTSIDE RECORDS SUMMARY | 2024-10-25 13:02 | XMS_ITS | Encounter Summary ---
Author Organization [facility] Address [address] [place] [address] Care Team Providers Care Heavy Equipment Mechanic Name Role Phone Viviana Adams MD Primary Care Provider Encounter Details Date Type Department Care Team (Late Contact Info) Description 09/21/2023 Telephone [facility] Oncology and Hematology [facility] [address] [place] [address] Aidan Hudson MD [address] [place] [address] [address] [place] [phone] Social History Tobacco Use Types Packs/Day Years Used Date Smoking Tobacco: Never Smokeless Tobacco: Never Alcohol Use Standard Drinks/Week Comments Never 0 (1 standard drink = 0.6 oz pur e alcohol) Comments Unknown Sex and Gender Information Value Date Recorded Sex Assigned at Not on file Legal Sex Female 10:59 AM ASSISTED LIVING CARE MANAGER Gender Identity Not on file Sexual Orientation Not on file documented as of this encounter Plan of Treatment Upcoming Encounters Date Type Department Care Team (Late Contact Info) Description 11/02/2024 10:00 AM ASSISTED LIVING CARE MANAGER Office Visit [facility] Oncology and Hematology [facility] [address] [place] [address] Aidan Hudson MD [address] [place], [place] [address] [address] [place] [phone] documented as of this encounter Visit Diagnoses Not on filedocumented in this encounter Care Teams Heavy Equipment Mechanic Relationship Specialty Start Date End Date Viviana Adams MD [address] [place] [phone] PCP - General Family Practice 08/25/23 documented as of this encounter
--- OUTSIDE RECORDS SUMMARY | 2024-10-25 13:02 | XMS_ITS | Patient Health Summary ---
Author Organization [facility] Address [address] [place] [address] Care Team Providers Care Police Reserves Commander Name Role Phone Unavailable Primary Care Provider Unavailabl e Note from [facility],non-owned Affiliates and Associated Physician Practices is amultiple site organization consisting of ambulatory clinics and hospital sitesin [place], [place], [place] and [place]. This disclosure is being madepursuant to the Care Everywhere program and may not contain all information available regarding this patient. Last updated 18.[facility] Social History Tobacco Use Types Packs/Day Years Used Date Smoking Tobacco: Never Assessed Sex and Gender Information Value Date Recorded Sex Assigned at Not on file Gender Identity Not on file Sexual Orientation Not on file Procedures * FLOW CYTOMETRY TISSUE PANEL(Performed 10/05/2023) Performed for Localized enlarged lymph nodes Results * FLOW CYTOMETRY TISSUE PANEL (10/05/2023 11:47 AM HISTORIOGRAPHER) Case Report Flow Cytometry Case: [id number] Authorizing Provider: Collected: 10/05/2023 11:47 AM Ordering Location: [facility] Pathology Lab Received: 10/05/2023 03:50 PM Pathologist: Ana Zaragoza MD Specimen: Lymph Node, R INGUINAL 10/05/2023 5:13 PM [facility] PATHOLOGY [facility] Final Diagnosis Lymph node, right inguinal, flow cytometric immunophenotypic analysis: - Mature B-cell lymphoma - See interpretation 10/05/2023 5:13 PM [facility] Flow Cytometry Interpretation Viability: 75% B-cells: monoclonal, kappa-restricted, express CD19 and CD20. The cells lack significant expression of CD5, CD10, and CD23. This population comprises 63.7% of events. T-cells: no immunophenotypic aberrancy detected CD4:CD8 ratio 8:1 with limited T-cells present in sample. A cytospin prepared from the flow cytometry specimen has been reviewed for quality systems technician purposes. 10/05/2023 5:13 PM [facility] Flow Cytometry Results Differential Result Comment Flow Cell Count /uL 80 Total Viability % 75.0 Lymphocytes % 91 Dim CD45 Region % 0 Monocytes % 1 Granulocytes % 6 10/05/2023 5:13 PM [facility] Reason for test Localized enlarged lymph nodes 785.6 10/05/2023 5:13 PM [facility] Client Specimen ID # [id number] 10/05/2023 5:13 PM [facility] Number of markers 16 were performed. A-2 Flow CD3 A-4 Flow CD10 A-6 Flow CD20 A-7 Flow CD23 A-12 Flow CD2 A-13 Flow CD4 A-16 Flow CD1a A-3 Flow CD5 A-5 Flow CD19 A-8 Flow CD34 A-9 Flow CD45 A-14 Flow CD7 A-15 Flow CD8 A-17 Flow CD30 A-10 [place]+CD19+ A-11 Lambda+CD19+ 10/05/2023 5:13 PM [facility] Pathologist Location at [facility] 10/05/2023 5:13 PM [facility] Disclaimer Test performed at [facility], [address] [place] [address], [address]. *The established laboratory minimum viability is 70%. [...] high complexity clinical testing. 10/05/2023 5:13 PM [facility] PATH[facility] Embedded Images 5:13 PM [facility] Pathology/Cytolo gy ENTIRE LYMPH NODE / Unknown 10/05/2023 11:47 AM HISTORIOGRAPHER 10/05/2023 3:50 PM HISTORIOGRAPHER Rick Gallo MD LAB - PATHO LOGY/CYTOLOGY ORDERABLES [facility] [address] [facility] [place] [address], [facility] [phone]
--- OUTSIDE RECORDS SUMMARY | 2024-10-25 13:02 | XMS_ITS | Clinical Summary ---
Author Organization [facility] Address [address] [place] [address] Care Team Providers Care Weaver Hand Name Role Phone Viviana Adams MD Primary Care Provider Allergies Active Allergy Reactions Criticality Noted Date Comments Clindamycin Other (See Comments) 09/03/2023 Pt doesn't recall Medications aspirin 325 mg Capsule Take 325 mg by mouth daily. Active metoprolol succinate (TOPROL XL) 25 mg Extended Release 24 hour tablet Take 25 mg by mouth daily. 03/21/2023 Active hydroCHLOROthiazi de 25 mg tablet Take 25 mg by mouth daily. Active modafiniL (PROVIGIL) 200 mg Tablet Take 200 mg by mouth 2 times daily. 07/08/2023 Active potassium bicarbonate (KLOR-CON/EF) 25 mEq Tablet, Effervescent 25 mEq 2 times daily. Active Active Problems Problem Noted Date Diagnosed Date Jaw pain 06/16/2017 Hypertension 10/04/2012 Obesity 10/04/2012 Obstructive sleep apnea syndrome 03/13/2011 Narcoleptic syndrome 10/15/2009 Encounters Date Type Department Care Team Description 10/04/2024 External Device Data STL ABSTRACTION Provider, Abstract 09/28/2024 External Device Data ST[facility] ABSTRACTION Provider, Abstract 09/28/2024 External Device Data ST[facility] ABSTRACTION Provider, Abstract 09/21/2024 External Device Data STL ABSTRACTION Provider, Abstract from Last 3 Months Family History Medical History Relation Name Comments Cancer Sister 2 Diabetes Sister 2 Breast Cancer Sister 3 Diabetes Sister 3 Relation Name Status Comments Father Mother Sister 1 Sister 2 Sister 3 Sister 4 Alive Son Alive Social History Tobacco Use Types Packs/Day Years Used Date Smoking Tobacco: Never Smokeless Tobacco: Never Tobacco Cessation:Counseling Given: Not Answered Alcohol Use Standard Drinks/Week Comments Never 0 (1 standard drink = 0.6 oz pur e alcohol) Comments Unknown Sex and Gender Information Value Date Recorded Sex Assigned at Not on file Legal Sex Female 10:59 AM POUND ATTENDANT Gender Identity Not on file Sexual Orientation Not on file Last Filed Vital Signs Vital Sign Reading Time Taken Comments Blood Pressure 133/79 04/19/2024 2:32 PM CDT Pulse 92 04/19/2024 2:32 PM CDT Temperature 36.6 C (97.8 F) 04/19/2024 2:32 PM CDT Respiratory Rate 18 04/19/2024 2:32 PM CDT Oxygen Saturation 97% 04/19/2024 2:32 PM CDT Inhaled Oxygen Concentration - - Weight 94.3 kg (208 lb) 04/19/2024 2:32 PM CDT Height 165.1 cm (5' 5 ) 09/03/2023 12:01 PM POUND ATTENDANT Body Mass Index 34.61 09/03/2023 12:01 PM POUND ATTENDANT Plan of Treatment Upcoming Encounters Date Type Department Care Team (Late st Contact Info) Description 11/02/2024 10:00 AM POUND ATTENDANT Office Visit [facility] Oncology and Hematology - Luis Enrique [address] [facility] [address] [place] [address] Aidan Hudson MD [address] [facility] [address] [place] [address] Health Maintenance Due Date Last Done Comments DTAP/TDAP/TD VACCINES (1 - Tdap) 1968 PNEUMOCOCCAL VACCINE 65+ YEA RS (1 of 2 - PCV) 1968 ZOSTER VACCINE (1 of 2) 1968 COLORECTAL SCREENING 1994 Colorectal Cancer Screening 1994 FIT-DNA Q 3 years 1994 FIT/FOBT Q 1 year 1994 Flex Sig/CT Colonography Q 5 years 1994 OSTEOPOROSIS SCREENING 2014 COVID-19 Vaccine (3 - Moderna risk series) 12/06/2020 11/08/2020, 10/11/2020 INFLUENZA VACCINE (#1) 2024 RSV VACCINE (60+ or ) (1 - 1-dose 75+ series) 2024 Medicare Advantage (DC) Prev entative Visit/Annual Wellness Visit 09/07/[id number] [facility] MCR Care Teams Weaver Hand Relationship Specialty Start Date End Date Viviana Adams MD [address] [place] [phone] PCP - General Family Practice 08/25/23
--- OUTSIDE RECORDS SUMMARY | 2024-10-25 13:02 | XMS_ITS | Referral Summary ---
Author Organization [facility] Address [address] [place] [address] Care Team Providers Care Editorial Writer Name Role Phone Unavailable Primary Care Provider Unavailabl e Source Comments [facility] [employer],non-owned Affiliates and Associated Physician Practices is amultiple site organization consisting of ambulatory clinics and hospital sitesin [place], [place], [place] and [place]. This disclosure is being madepursuant to the Care Everywhere program and may not contain all information available regarding this patient. Last updated 18.[facility] [employer] Social History Tobacco Use Types Packs/Day Years Used Date Smoking Tobacco: Never Assessed Sex and Gender Information Value Date Recorded Sex Assigned at Not on file Gender Identity Not on file Sexual Orientation Not on file Plan of Treatment Not on file
--- OUTSIDE RECORDS SUMMARY | 2024-10-25 13:02 | XMS_ITS | Data Portability ---
Author Organization [facility] Address [address] [place] [address] Assessment No assessment recorded. Plan of Treatment Reminders Order Date Submit Date Provider Last Modified By Organization Details Last Modified Time Details Appointments None record ed. Lab None record ed. Referral None record ed. Procedures None record ed. Surgeries None record ed. Imaging None record ed. Medication Orders None record ed. Patient TargetsNo targets recorded. Patient InstructionsNo instructions recorded. Reason for Referral None Reported. Medical Equipment None Reported. Vitals None Recorded Social History None recorded. Functional Status None recorded. Mental Status None recorded. Family History Nothing Reported. Medical History No medical history recorded. Gynecological HistoryNo gynecological history recorded. Obstetrics History GPAL:G 0 P 0 0 0 0 Immunizations Vaccine Type Date Status Note Provider Nam e and Address Organization Details Recorded Time COVID-19, mRNA, LNP-S, PF, 100 mcg/0.5mL dose or 50 mcg/0.25mL dose 10/11/2020 completed Margi Russell [place] null, [place] [facility] 10/11/2020 15:59:49 COVID-19, mRNA, LNP-S, PF, 100 mcg/0.5mL dose or 50 mcg/0.25mL dose 11/08/2020 completed Daniel Cunningham MA null, [place] [facility] 11/08/2020 13:21:01 Past Encounters Encounter ID Performer Location Encounter Start Date Encounter Closed Date Diagnosis/Indication Diagnosis SNOMED-CT Code Diagnosis ICD10 Code Diagnosis Note [id number] TODD Pinto [address] [place] [address] 10/11/2020 11:50:01 10/12/2020 06:12:55 Administration of SARS-CoV-2 antigen vaccine 099975476 Z23 [id number] TODD Pinto 14 IM [address] [place] [address] 11/08/2020 11:41:28 11/09/2020 08:06:37 Administration of SARS-CoV-2 antigen vaccine [id number] Z23 Health Concerns Section Related Observation LastModified by Organization Detai ls LastModified Time None Recorded Concern Status LastModified by Organization Details LastModified Time None Recorded Advance Directives Directive None Recorded Payers Encounter Date Sequence Insurance Name Policy Number Policy Tucker Covered Member ID Tucker Member ID Guarantor Name 10/11/2020 1 [employer] (MEDICARE REPLACEMENT HMO) [id number] L Peggy Weston [id number] Peggy Weston 11/08/2020 1 [employer] (MEDICARE REPLACEMENT HMO) [id number] Peggy Weston [id number] Peggy Weston 11/08/2020 2 [place] Peggy Weston [id number] Peggy Weston OBGyn Episode No OBEpisode recorded.
--- OUTSIDE RECORDS SUMMARY | 2024-10-25 13:02 | XMS_ITS | Clinical Summary ---
Author Organization [facility] [employer] Address [address] [place] [address] Care Team Providers Care Child Care Education Coordinator Name Role Phone Unavailable Primary Care Provider Unavailabl e Source Comments [facility] [employer],non-owned Affiliates and Associated Physician Practices is amultiple site organization consisting of ambulatory clinics and hospital sitesin [place], [place], [place] and [place]. This disclosure is being madepursuant to the Care Everywhere program and may not contain all information available regarding this patient. Last updated 18.[facility] [employer] Social History Tobacco Use Types Packs/Day Years Used Date Smoking Tobacco: Never Assessed Sex and Gender Information Value Date Recorded Sex Assigned at Not on file Gender Identity Not on file Sexual Orientation Not on file Plan of Treatment Health Maintenance Due Date Last Done Comments BONE DENSITY TESTING 1949 COLOGUARD (AGES 45-75) - COL ON CA SCREENING 1949 COLON MONITORING 1949 COLONOSCOPY - COLON CA SCREENING 1949 CT COLONOGRAPHY - COLON CA SCREENING 1949 Colorectal Cancer Screening 1949 FIT - COLON CA SCREENING 1949 FLEX SIG - COLON CA SCREENING 1949 LIPID TESTING 1949 MAMMOGRAM 1949 COVID-19 VACCINE (#1) 1954 HEPATITIS C SCREENING 04/19/1967 DTAP/TDAP/TD VACCINES (1 - Tdap) 1968 PNEUMOCOCCAL VACCINE 50+ (1 of 2 - PCV) 1968 ZOSTER VACCINE (1 of 2) 1968 Respiratory Syncytial Virus (RSV) Vaccine Pt: or over 60 yrs (1 - 1-dose 75+ series) 2024 INFLUENZA VACCINE (#1) 2024 DEPRESSION SCREENING 09/07/2024 MEDICARE AWV CALENDAR YEAR 2024 HEPATITIS B VACCINE Aged Out No longe r eligible based on patient's age to complete this topic HIB VACCINE Aged Out No longer eligi ble based on patient's age to complete this topic HPV VACCINE Aged Out No longer eligi ble based on patient's age to complete this topic MENINGOCOCCAL (Group B) VACCINE Aged Out No longer eligible based on patient's age to complete this topic MENINGOCOCCAL VACCINE Aged Out No armando hina eligible based on patient's age to complete this topic
[2024-10-25 13:18] LABS: Basophils Percent Auto 0.5 % (0.2-1.2); Eosinophils Absolute Auto 0.5 K/mm3 (0-0.3); Eosinophils Percent Auto 6.7 % (0-4.4); Hematocrit 39.4 % (37.0-47.0); Hemoglobin 12.9 g/dL (12.0-15.0); Immature Granulocyte Absolute 0.01 K/mm3 (0.00-0.031); Immature Granulocyte Percent A 0.1 % (0-0.5); Lymphocytes Absolute Auto 2.04 K/mm3 (0.9-3.2); Lymphocytes Percent Auto 27.2 % (18.3-44.2); Mean Corpuscular HGB Conc 32.7 g/dl (32-36); Mean Corpuscular Hemoglobin 29.9 pg (26-34); Mean Corpuscular Volume 91.2 fl (80-100); Mean Platelet Volume 9.1 fl (7.4-10.4); Monocytes Absolute Auto 0.8 K/mm3 (0.1-0.6); Monocytes Percent Auto 11.2 % (2.6-8.5); Neutrophils Absolute Auto 4.1 K/mm3 (1.3-6.7); Neutrophils Percent Auto 54.3 % (45.5-73.1); Platelet Count Result 187 k/mm3 (150-375); Red Blood Count 4.32 M/mm3 (4.2-5.4); Red Cell Distribution Width 14.6 % (11.5-14.5); White Blood Count 7.5 K/mm3 (4.5-10.0)
[2024-10-25 14:04] LABS: Alanine Aminotransferase 28 U/L (6-35); Albumin Level 4.1 g/dL (3.5-5.1); Alkaline Phosphatase 86 U/L (38-126); Anion Gap 7 mmol/L (4-12); Aspartate Amino Transferase 42 U/L (14-36); Bilirubin,Total 0.6 mg/dL (0.2-1.3); Blood Urea Nitrogen 13 mg/dL (7-17); Calcium 8.7 mg/dL (8.4-10.2); Carbon Dioxide 30 mmol/L (22-30); Chloride 103 mmol/L (98-107); Estimated Glomerular Filt Rate > 60; Glucose 116 mg/dL (65-110); Potassium 3.8 mmol/L (3.4-5.0); Sodium 140 mmol/L (137-145)
== END 2024-10-25 12:58 | disposition home or self-care (01) ==
LOC: ANHLAB 12:58
PROVIDERS: PCP Family Medicine; Visit Provider Internal Medicine Hematology & Oncology
DX: C91.10 Chronic lymphocytic leukemia of B-cell type not having achieved remission (principal)
CPT/HCPCS: 36415; 80053; 85025

== ENCOUNTER 2025-05-22 14:44 | Outpatient (CLI) | payer MEDICARE, SELFPAY ==
--- NOTE | ~2025-05-22 | XR_ITS ---
EXAMINATION: XR knee LT min 4V, 05/22/2025 14:55 CDT HISTORY: Pain in left knee since February, no surg, no inj COMPARISON: No comparisons available. Findings: No acute fracture or malalignment. No significant degenerative changes. Soft tissues unremarkable. Impression: No acute fracture or malalignment. Reviewed, dictated and finalized at location A. Impression: No acute fracture or malalignment.
== END 2025-05-22 14:45 | disposition home or self-care (01) ==
LOC: GOSHIMG 14:45
PROVIDERS: PCP Family Medicine; Visit Provider Family Medicine
DX: M25.562 Pain in left knee (principal); G89.29 Other chronic pain
CPT/HCPCS: 73564

== ENCOUNTER 2025-05-25 11:25 | Outpatient (CLI) | payer MEDICARE, SELFPAY ==
--- OUTSIDE RECORDS SUMMARY | 2025-05-25 11:52 | XMS_ITS | Clinical Summary ---
Author Organization [facility] [address] Address [address] [place] [address] Care Team Providers Care Bulk Pigment Reducer Name Role Phone Viviana Adams MD Primary Care Provider Allergies Active Allergy Reactions Criticality Noted Date Comments Clindamycin Medications aspirin 325 mg capsule Take 325 mg by mouth daily Active UNABLE TO FIND arnicare gel Ac tive meloxicam (MOBIC) 7.5 mg tablet Take 1 tablet (7.5 mg total) by mouth as needed Active cholecalcifero l, vitamin D3, (VITAMIN D3 ORAL) Take 250 mcg by mouth once a week Active oxyBUTYnin XL (DITROPAN-XL) 10 mg 24 hr tablet Take 1 tablet (10 mg total) by mouth daily 3 Active metoprolol XL (TOPROL-XL) 25 mg extended release tablet Take 1 tablet (25 mg total) by mouth daily 3 Active hydroCHLOROthi azide (HYDRODIURIL) 25 mg tablet Take 1 tablet (25 mg total) by mouth daily Active cyanocobalamin (vitamin B-12) 1,000 mcg tabletIndicati ons:Prevention of Vitamin B12 Deficiency Take 1 tablet (1,000 mcg total) by mouth once a week Active modafiniL (PROVIGIL) 200 mg tabletIndicati ons:Primary narcolepsy without cataplexy Take 2 tablets by mouth once daily 180 tablet 5 Active modafiniL (PROVIGIL) 200 mg tabletIndicati ons:Primary narcolepsy without cataplexy Take 2 tablets by mouth once daily 180 tablet 025 Discontinued Active Problems Problem Noted Date Diagnosed Date Jaw pain 06/16/2017 Hypertension 10/04/2012 Obesity 10/04/2012 Obstructive sleep apnea syndrome 03/13/2011 Narcoleptic syndrome 10/15/2009 Medical History Medical History Date Comments Narcolepsy KAYLEE (obstructive sleep apnea) Hypertension CLL (chronic lymphocytic leukemia) Social History Tobacco Use Types Packs/Day Years Used Date Smoking Tobacco: Never Smokeless Tobacco: Never Tobacco Cessation:Counseling Given: Not Answered Comments Unknown Sex and Gender Information Value Date Recorded Sex Assigned at Not on file Legal Sex Female 8:53 AM CRANE HOIST OR LIFT OPERATOR Gender Identity Not on file Sexual Orientation [...] PM CD T Height 165.1 cm (5' 5) 05/31/2024 1:31 PM CDT Body Mass Index 34.86 05/31/2024 1:31 PM CDT Plan of Treatment Health Maintenance Due Date Last Done Comments Depression Screening 1949 Fall Risk Assessment 1949 Hepatitis C Screening 1949 Osteoporosis Screening-Bone Density Scan 1949 DTaP/Tdap/Td Vaccine (1 - Tdap) 1960 Hepatitis B Screening 1967 Pneumococcal vaccine 65+ (1 of 1 - PCV) 1999 Zoster Vaccine (1 of 2) 1999 Well Visit 65+ 2014 Covid-19 Vaccine (3 - season) 05/08/202512/2020, 10/11/2020 Influenza Vaccine (#1) 2025 Breast Cancer Screening-Mammogram Discontinued 014 Insurance AETNA MEDICARE GOLD AET MEDICARE GOLD Care Teams Bulk Pigment Reducer Relationship Specialty Start Date End Date Viviana Adams MD PCP - General Family Practice 12/31/21
--- OUTSIDE RECORDS SUMMARY | 2025-05-25 11:52 | XMS_ITS | Encounter Summary ---
Author Organization [facility] Address [address] [place] [address] Care Team Providers Care Glove Pairer Name Role Phone Unavailable Primary Care Provider Unavailabl e Encounter Details Date Type Department Care Team (Late st Contact Info) Description 10/05/2023 Lab Requisition [facility] - Pathology Lab [address] [place] [address] Rick Gallo MD [address] [place] [address] Localized enlarged lymph nodes Social History Tobacco Use Types Packs/Day Years Used Date Smoking Tobacco: Never Assessed Comments Unknown Sex and Gender Information Value Date Recorded Sex Assigned at Not on file Legal Sex Female 3:43 PM DEPUTY SHERIFF/INVESTIGATOR Gender Identity Not on file Sexual Orientation Not on file documented as of this encounter Plan of Treatment Not on file documented as of this encounter Procedures Procedure Name Priority Date/Time Associated Diagnosis Comments FLOW CYTOMETRY TISSUE PANEL Routine 10/05/2023 11:47 AM DEPUTY SHERIFF/INVESTIGATOR Localized enlarged lymph nodes documented in this encounter Results * FLOW CYTOMETRY TISSUE PANEL (10/05/2023 11:47 AM DEPUTY SHERIFF/INVESTIGATOR) Case Report Flow Cytometry Case: [id number] Authorizing Provider: Collected: 10/05/2023 11:47 AM Ordering Location: [facility] Care Pathology Lab Received: 10/05/2023 03:50 PM Pathologist: Ana Zaragoza MD Specimen: Lymph Node, R INGUINAL 10/05/2023 5:13 PM DEPUTY SHERIFF/INVESTIGATOR [facility] Final Diagnosis Lymph node, right inguinal, flow cytometric immunophenotypic analysis: - Mature B-cell lymphoma - See interpretation 10/05/2023 5:13 PM DEPUTY SHERIFF/INVESTIGATOR [facility] at [address] DEPUTY SHERIFF/INVESTIGATOR Flow Cytometry Interpretation Viability: 75% B-cells: monoclonal, kappa-restricted, express CD19 and CD20. The cells lack significant expression of CD5, CD10, and CD23. This population comprises 63.7% of events. T-cells: no immunophenotypic aberrancy detected CD4:CD8 ratio 8:1 with limited T-cells present in sample. A cytospin prepared from the flow cytometry specimen has been reviewed for vice president quality improvement purposes. 10/05/2023 5:13 PM [facility] Flow Cytometry Results Differential Result Comment Flow Cell Count /uL 80 Total Viability % 75.0 Lymphocytes % 91 Dim CD45 Region % 0 Monocytes % 1 Granulocytes % 6 10/05/2023 5:13 PM [facility] Reason for test Localized enlarged lymph nodes 785.6 10/05/2023 5:13 PM [facility] Client Specimen ID # [id number] 10/05/2023 5:13 PM [facility] Number of markers 16 were performed. A-2 Flow CD3 A-4 Flow CD10 A-6 Flow CD20 A-7 Flow CD23 A-12 Flow CD2 A-13 Flow CD4 A-16 Flow CD1a A-3 Flow CD5 A-5 Flow CD19 A-8 Flow CD34 A-9 Flow CD45 A-14 Flow CD7 A-15 Flow CD8 A-17 Flow CD30 A-10 [place]mendorf+CD19+ A-11 Lambda+CD19+ 10/05/2023 5:13 PM [facility] Pathologist Location at [facility] 10/05/2023 5:13 PM [facility] Disclaimer Test performed at [facility], [address] [place] [address], [address]. *The established laboratory minimum viability is 70%. [...] high complexity clinical testing. 10/05/2023 5:13 PM DEPUTY SHERIFF/INVESTIGATOR [facility] Embedded Images 5:13 PM DEPUTY SHERIFF/INVESTIGATOR [facility] Pathology/Cytolo gy ENTIRE LYMPH NODE / Unknown 10/05/2023 11:47 AM DEPUTY SHERIFF/INVESTIGATOR 10/05/2023 3:50 PM DEPUTY SHERIFF/INVESTIGATOR Rick Gallo MD LAB - PATHOLOGY/CYT OLOGY ORDERABLES Final Result Performing Organization Address City/State/[facility] Co de Phone Number [facility] [address] [phone] documented in this encounter Visit Diagnoses Diagnosis Localized enlarged lymph nodes Enlargement of lymph nodes documented in this encounter
--- OUTSIDE RECORDS SUMMARY | 2025-05-25 11:52 | XMS_ITS | Clinical Summary ---
Author Organization [facility] Address [address] [place] [address] Care Team Providers Care Housekeeping/Laundry Name Role Phone Unavailable Primary Care Provider Unavailabl e Social History Tobacco Use Types Packs/Day Years Used Date Smoking Tobacco: Never Assessed Comments Unknown Sex and Gender Information Value Date Recorded Sex Assigned at Not on file Legal Sex Female 8:38 AM SWITCHBOARD RECEPTIONIST Gender Identity Not on file Sexual Orientation Not on file Plan of Treatment Health Maintenance Due Date Last Done Comments Hepatitis C 1967 DTaP, Tdap and Td Vaccines ( 1 - Tdap) 1968 Pneumococcal Vaccine: 50+ Ye ars (1 of 1 - PCV) 1999 Zoster Vaccines (1 of 2) 1999 Annual Medicare Wellness Visit 2014 Dexa Scan (General) 2014 RSV Immunization or 60+ Years (1 - 1-dose 75+ series) 2024 COVID-19 Vaccine ( - 2023-2 5 season) 2025 Meningococcal B Vaccine Aged Out No l onger eligible based on patient's age to complete this topic Meningococcal Vaccine Aged Out No armando hina eligible based on patient's age to complete this topic RSV Immunizations Under 20 Months Aged Out No longer eligible based on patient's age to complete this topic Insurance AETNA
--- OUTSIDE RECORDS SUMMARY | 2025-05-25 11:52 | XMS_ITS | Clinical Summary ---
Author Organization [facility] Address [address] [place] [address] Care Team Providers Care Risk Modeler Name Role Phone Unavailable Primary Care Provider Unavailabl e Source Comments [facility],non-owned Affiliates and Associated Physician Practices is amultiple site organization consisting of ambulatory clinics and hospital sitesin [place], [place], [place] and [place]. This disclosure is being madepursuant to the Care Everywhere program and may not contain all information available regarding this patient. Last updated 18.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 Gender Identity Not on file Sexual Orientation Not on file Plan of Treatment Health Maintenance Due Date Last Done Comments BONE DENSITY TESTING 1950 HEPATITIS C SCREENING 04/19/1967 DTAP/TDAP/TD VACCINES (1 - Tdap) 1968 PNEUMOCOCCAL VACCINE 50+ (1 of 1 - PCV) 1999 ZOSTER VACCINE (1 of 2) 1999 Respiratory Syncytial Virus (RSV) Vaccine Pt: or over 60 yrs (1 - 1-dose 75+ series) 2024 DEPRESSION SCREENING 09/07/2024 MEDICARE AWV CALENDAR YEAR 2024 COVID-19 VACCINE ( - 2023-2 5 season) 2025 INFLUENZA VACCINE (#1) 2025 HEPATITIS B VACCINE Aged Out No longe r eligible based on patient's age to complete this topic HIB VACCINE Aged Out No longer eligi ble based on patient's age to complete this topic HPV VACCINE Aged Out No longer eligi ble based on patient's age to complete this topic MENINGOCOCCAL (Group B) VACC INE SHARED DECISION-MAKING Aged Out No longer eligibl e based on patient's age to complete this topic MENINGOCOCCAL GROUPS A/C/Y/W VACCINE Aged Out No longer eligible b ased on patient's age to complete this topic Insurance AET MEDICARE ADV AETNA MEDICARE ADV SELF PAY NO INSURANCE Member Subscriber Plan / Payer (Ef fective for All Dates) Name:Anna Weston Member ID:Not on file Relation to Subscriber:Not on file Name:ANNA WESTON Subscriber ID:Not on file (Home) Address: [facility] [place] [address] Payer ID:Not on file Group ID:Not on file Type:Self Pay Address: [place], [place] AETNA MEDICARE ADV SELF PAY NO INSURANCE Member Subscriber Plan / Payer (Ef fective for All Dates) Name:Anna Weston Member ID:Not on file Relation to Subscriber:Not on file Name:ANNA WESTON Subscriber ID:Not on file (Home) Address: [address] [place] [address] [place] [address] Payer ID:Not on file Group ID:Not on file Type:Self Pay Address: [place], [place]
--- OUTSIDE RECORDS SUMMARY | 2025-05-25 11:52 | XMS_ITS | Encounter Summary ---
Author Organization [facility] Address [address] [place] [address] Care Team Providers Care Electromechanical Equipment Tester Name Role Phone Viviana Adams MD Primary Care Provider Encounter Details Date Type Department Care Team (Late st Contact Info) Description 05/23/2025 External Device Data [facility] ABSTRACTION Provider, Abstract NO ADDRESS ON FILE Social History Tobacco Use Types Packs/Day Years Used Date Smoking Tobacco: Never Smokeless Tobacco: Never Alcohol Use Standard Drinks/Week Comments Never 0 (1 standard drink = 0.6 oz pur e alcohol) Comments Unknown Sex and Gender Information Value Date Recorded Sex Assigned at Not on file Legal Sex Female 10:59 AM 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 MARKETING DIRECTOR Gender Identity Not on file Sexual Orientation Not on file documented as of this encounter Plan of Treatment Upcoming Encounters Date Type Department Care Team (Late st Contact Info) Description 08/09/2025 10:00 AM SALES MARKETING DIRECTOR Office Visit [facility] Oncology and Hematology - Luis Enrique [address] [facility] [address] [address] [place] [address] [place] [address] [address] [place] [address] documented as of this encounter Visit Diagnoses Not on filedocumented in this encounter Care Teams Electromechanical Equipment Tester Relationship Specialty Start Date End Date Viviana Adams MD [address] [place] [address] PCP - General Family Practice 08/25/23 documented as of this encounter
--- OUTSIDE RECORDS SUMMARY | 2025-05-25 11:52 | XMS_ITS | Encounter Summary ---
Author Organization [facility] [employer] [facility] Address [address] [place] [address] Care Team Providers Care Hand Etcher Helper Name Role Phone Viviana Adams MD Primary Care Provider Encounter Details Date Type Department Care Team (Late Contact Info) Description 09/21/2023 Telephone [facility] Oncology and Hematology [facility] [address] [place] [address] Aidan Hudson MD [address] [place] [address] [address] [place] [address] Social History Tobacco Use Types Packs/Day Years Used Date Smoking Tobacco: Never Smokeless Tobacco: Never Alcohol Use Standard Drinks/Week Comments Never 0 (1 standard drink = 0.6 oz pur e alcohol) Comments Unknown Sex and Gender Information Value Date Recorded Sex Assigned at Not on file Legal Sex Female 10:59 AM BRIDGE WORKER Gender Identity Not on file Sexual Orientation Not on file documented as of this encounter Plan of Treatment Upcoming Encounters Date Type Department Care Team (Late Contact Info) Description 08/09/2025 10:00 AM BRIDGE WORKER Office Visit [facility] Oncology and Hematology [facility] [address] [place] [address] Aidan Hudson MD [address] [place], [place] [address] [address] [place] [address] documented as of this encounter Visit Diagnoses Not on filedocumented in this encounter Care Teams Hand Etcher Helper Relationship Specialty Start Date End Date Viviana Adams MD [address] [place] [phone] PCP - General Family Practice 08/25/23 documented as of this encounter
--- OUTSIDE RECORDS SUMMARY | 2025-05-25 11:52 | XMS_ITS | Clinical Summary ---
Author Organization [facility] Robby Tello Address [address] [place] [address] Care Team Providers Care Drapery Cutter Name Role Phone Viviana Adams MD Primary [...] Encounters Date Type Department Care Team Description 05/23/2025 External Device Data STL ABSTRACTION Provider, Abstract 03/22/2025 External Device Data ST[facility] ABSTRACTION Provider, Abstract 03/21/2025 External Device Data ST[facility] ABSTRACTION Provider, Abstract 02/28/2025 External Device Data STL ABSTRACTION Provider, Abstract [...] on file Legal Sex Female 10:59 AM DIRECTOR OF SPECIAL SERVICES Gender Identity Not on file Sexual Orientation Not on file Last Filed Vital Signs Vital Sign Reading Time Taken Comments Blood Pressure 130/79 11/07/2024 10:21 AM DIRECTOR OF SPECIAL SERVICES Pulse 84 11/07/2024 10:21 AM DIRECTOR OF SPECIAL SERVICES Temperature 36 C (96.8 F) 11/07/2024 10:21 AM DIRECTOR OF SPECIAL SERVICES Respiratory Rate 15 11/07/2024 10:21 AM DIRECTOR OF SPECIAL SERVICES Oxygen Saturation 97% 11/07/2024 10:21 AM DIRECTOR OF SPECIAL SERVICES Inhaled Oxygen Concentration - - Weight 92.1 kg (203 lb) 11/07/2024 10:21 AM DIRECTOR OF SPECIAL SERVICES Height 165.1 cm (5' 5) 09/03/2023 12:01 PM DIRECTOR OF SPECIAL SERVICES Body Mass Index 33.78 09/03/2023 12:01 PM DIRECTOR OF SPECIAL SERVICES Plan of Treatment Upcoming Encounters Date Type Department Care Team (Late st Contact Info) Description 08/09/2025 10:00 AM DIRECTOR OF SPECIAL SERVICES Office Visit [facility] Oncology and Hematology - Luis Enrique [address] [place] [address] [facility] [address] [place] [address] [place] [address] [place] [address] [address] [place] [address] Health Maintenance Due Date Last Done Comments DTAP/TDAP/TD VACCINES (1 - Tdap) 1968 PNEUMOCOCCAL VACCINE 50+ YEA RS (1 of 2 - PCV) 1968 ZOSTER VACCINE (1 of 2) 1968 OSTEOPOROSIS SCREENING 2014 RSV VACCINE (60+ or ) (1 - 1-dose 75+ series) 2024 Medicare Advantage ([place]) Prev entative Visit/Annual Wellness Visit 09/07/2024 INFLUENZA VACCINE (#1) 2025 COVID-19 Vaccine (3 - season) 05/08/202512/2020, 10/11/2020 Insurance AETNA O MCR Care Teams Drapery Cutter Relationship Specialty Start Date End Date Viviana Adams MD [address] [place] [phone] PCP - General Family Practice 08/25/23
--- OUTSIDE RECORDS SUMMARY | 2025-05-25 11:52 | XMS_ITS | Patient Health Record ---
Author Organization [facility] Address [address] [facility] [address] [place], [place] [id number] Care Team Providers Care Foundry Worker Name Role Phone Tate Ko MD Primary Care Provider Tate Ko MD Unavailable Unavailable Reason For Referral No Information Medications Medication SIG (Take, Route, Frequency, Duration) Notes Start Date End Date Status hydroCHLOROthiazide 25 MG Tablet 1 tablet Orally Once a day; Duration: 30 day(s) Active Metoprolol Succinate 50 MG Tablet Extended Release 24 Hour 1 tablet Orally Once a day; Duration: 30 day(s) Active Provigil 200 MG Tablet 1 tablet Orally O nce a day Active Social History Social History Additional Details Category Social Info Options Details Social History Alcohol: No Smoking Status: No Recreational Drug Use: No Marital Status: Single 1985 Plan Of Treatment Pending Test Test Name Order Date Mammogram 03/08/2012 Insurance Providers Payer Name Payer Address Payer Phone Subscriber Number Group Number Insured Name Patient Relationship to Insured Coverage Start Date Coverage End Date [facility] [address] [place] [address] [id number] Peggy Weston Self - patient is the insured Medical (General) History Medical History History ICD Code MVP GERD Hypertension Sleep apnea Recurrent Bartholin's duct cysts Surgical History Surgery Date(Month/Year) Laparoscopic tubal ligation- hmorrhage - laparotomy hyperplasia of tubes 1975 NATO 1983 hemorrhoidectomy/anal fissure repair 198 9 Benign right breast biopsy Dang 1996
[2025-05-25 13:03] LABS: Hematocrit 40.0 % (37.0-47.0); Hemoglobin 12.5 g/dL (12.0-15.0); Immature Granulocyte Percent A 0.1 % (0-0.5); Lymphocytes Absolute Auto 2.58 K/mm3 (0.9-3.2); Mean Corpuscular HGB Conc 31.3 g/dl (32-36); Mean Corpuscular Hemoglobin 29.2 pg (26-34); Mean Corpuscular Volume 93.5 fl (80-100); Nucleated Red Blood Cells Absolute Auto 0.000 K/mm3 (0.0-0.012); Nucleated Red Blood Cells Perc 0.0 % (0.0-0.2); Platelet Count Result 180 k/mm3 (150-375); Red Blood Count 4.28 M/mm3 (4.2-5.4); White Blood Count 7.4 K/mm3 (4.5-10.0)
[2025-05-25 13:07] LABS: Alanine Aminotransferase 20 U/L (6-35); Albumin Level 4.3 g/dL (3.5-5.1); Alkaline Phosphatase 80 U/L (38-126); Anion Gap 3 mmol/L (4-12); Aspartate Amino Transferase 48 U/L (14-36); Bilirubin,Total 0.7 mg/dL (0.2-1.3); Blood Urea Nitrogen 17 mg/dL (7-17); Calcium 8.6 mg/dL (8.4-10.2); Carbon Dioxide 33 mmol/L (22-30); Chloride 104 mmol/L (98-107); Cholesterol 184 mg/dL (0-200); Estimated Glomerular Filt Rate > 60; Glucose 95 mg/dL (65-110); HDL Direct 47 mg/dL; Potassium 3.8 mmol/L (3.4-5.0); Sodium 140 mmol/L (137-145); Total Protein 7.3 g/dL (6.3-8.2); Triglycerides 61 mg/dL (<150)
[2025-05-25 13:32] LABS: Hemoglobin A1C 6.2 % (<5.7)
[2025-05-25 13:39] LABS: Thyroid Stimulating Hormone Reflex 4.720 uIU/mL (0.465-4.68)
[2025-05-25 14:42] LABS: Free T4 Free Thyroxine Reflex 0.97 ng/dL (0.78-2.19)
[2025-05-25 16:02] LABS: Total Triiodothyronine (T3) 1.19 NG/ML (0.82-1.58)
[2025-05-25 16:15] LABS: Vitamin B12 > 1000.0 pg/mL (239-931)
== END 2025-05-25 11:26 | disposition home or self-care (01) ==
LOC: ANHGOSHLAB 11:26
PROVIDERS: PCP Family Medicine; Visit Provider Family Medicine
DX: E78.5 Hyperlipidemia, unspecified (principal); I10 Essential (primary) hypertension; R73.03 Prediabetes; E55.9 Vitamin D deficiency, unspecified; E53.8 Deficiency of other specified B group vitamins
CPT/HCPCS: 36415; 80053; 80061; 82306; 82607; 83036; 84439; 84443; 84480; 85025

== ENCOUNTER 2025-06-21 14:35 | Outpatient (CLI) | payer MEDICARE, SELFPAY ==
--- OUTSIDE RECORDS SUMMARY | 2025-06-20 13:30 | XMS_ITS | Encounter Summary ---
Author Organization [facility] Address [address] [place] [address] Phone Care Team Providers Care Supervisor Inspection And Testing Name Role Phone Viviana Adams MD Primary Care Provider Encounter Details Date Type Department Care Team (Late st Contact Info) Description 06/20/2025 1:30 PM CDT Office Visit [facility] Medicine Neuro Sleep [address] [place] [address] 6th [address] [place] [address] Jose F Farmer MD [address] [place], [place] [id number] 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); Obstructive sleep apnea syndrome Social History Tobacco Use Types Packs/Day Years Used Date Smoking Tobacco: Never Smokeless Tobacco: Never Tobacco Cessation:Counseling Given: Not Answered Comments Unknown Sex and Gender Information Value Date Recorded Sex Assigned at Not on file Legal Sex Female 8:53 AM JAMB CUTTER Gender Identity Not on file Sexual Orientation Not on file documented as of this encounter Last Filed Vital Signs Vital Sign Reading Time Taken Comments Blood Pressure 135/86 06/20/2025 1:35 PM CDT Pulse 77 06/20/2025 1:35 PM CDT Temperature 36.5 C (97.7 F) 06/20/2025 1:35 PM CDT Respiratory Rate - - Oxygen Saturation 98% 06/20/2025 1:35 PM CDT Inhaled Oxygen Concentration - - Weight 92.3 kg (203 lb 8 oz) 06/20/2025 1:35 PM CDT Height 165.1 cm (5' 5) 06/20/2025 1:35 PM CDT Body Mass Index 33.86 06/20/2025 1:35 PM CDT documented in this encounter Ordered Prescriptions Prescription Sig Dispense Quantity Refills Last Filled Start Date End Date modafiniL (PROVIGIL) 200 mg tabletIndications: Primary narcolepsy without cataplexy Take 2 tablets (400 mg total) by mouth daily 180 tablet 1 06/20/2025 documented in this encounter Progress Notes * Jose F Farmer MD - 06/20/2025 1:30 PM CDT Patient Name: PEGGY LEE Medical Record Number (MRN): [id number] Date of (): 1950 Encounter Date: 06/20/2025 Subjective Chief Complaint Peggy Lee is a 75 y.o. female seen today for follow-up of narcolepsy and KAYLEE. HPI 75 year old woman who presents for follow up of her narcolepsy treated with modafinil 400 mg qAM and severe REM-dependent obstructive sleep apnea syndrome. She was last seen on 05/31/2024. At the last visit, the patient the reported that she had stopped using CPAP. Today, she states thatshe has not restarted. We reviewed what would be needed to restart CPAP therapy including a new DMEorder which she did not request. She reports getting benefit from CPAP but does not want to use PAPbecause she can't integrate it into her life. For narcolepsy, she takes modafinil which has been helpful. She feels like modafinil helps her concentrate. No adverse drug effects such as headaches, high blood pressure, jittiness, or motor vehicle accidents reported. No cataplexy. The patient did note several sleep concerns including lacking sleep discipline with an erratic schedule, problems with sleep due to pain from recent knee injury, feeling over-whelmed by her workload, lacking organization, and needing a workspace and to make lists. Bedtime: varies (unchanged from last visit) Risetime: varies (unchanged from last visit) Sleep latency: seconds (unchanged from last visit) Naps: frequent (daily) and unplanned Alva Sleepiness Scale: (06/20/2025) vs. (05/31/2024) vs. (12/29/2023) vs. (06/02/2023)16 (12/31/2021) vs 08/30 (12/18/2020) vs (11/30/2018) vs (06/16/17) vs (05/21/16) vs (12/20/14) vs (12/27/13) vs (08/25/13) vs (02/23/13). Allergies Allergen Reactions Clindamycin Current Outpatient Medications Medication Sig Dispense Refill aspirin 325 mg capsule Take 325 mg by mouth daily cholecalciferol, vitamin D3, (VITAMIN D3 ORAL) Take 250 mcg by mouth once a week (Patient taking differently: Take 250 mcg by mouth 2 (two) times a day) cyanocobalamin (vitamin B-12) 1,000 mcg tablet Take 1 tablet (1,000 mcg total) by mouth once a week(Patient taking differently: Take 1 tablet (1,000 mcg total) by mouth once a week Every other day) hydroCHLOROthiazide (HYDRODIURIL) 25 mg tablet Take 1 tablet (25 mg total) by mouth daily meloxicam (MOBIC) 7.5 mg tablet Take 1 tablet (7.5 mg total) by mouth as needed (Patient taking differently: Take 1 tablet (7.5 mg total) by mouth daily) metoprolol XL (TOPROL-XL) 25 mg extended release tablet Take 1 tablet (25 mg total) by mouth daily UNABLE TO FIND arnicare gel modafiniL (PROVIGIL) 200 mg tablet Take 2 tablets (400 mg total) by mouth daily 180 tablet 1 oxyBUTYnin XL (DITROPAN-XL) 10 mg 24 hr tablet Take 1 tablet (10 mg total) by mouth daily (Patient not taking: Reported on 06/20/2025) No current facility-administered medications for this visit. Patient Active Problem List Diagnosis Hypertension Narcoleptic syndrome Obstructive sleep apnea syndrome Obesity Jaw pain Past Medical History: Diagnosis Date CLL (chronic lymphocytic leukemia) Hypertension Narcolepsy KAYLEE (obstructive sleep apnea) History reviewed. No pertinent surgical history. No family history on file. Social History Tobacco Use Smoking status: Never Smokeless tobacco: Never Substance and Sexual Activity Drug use: None Sexual activity: None Alcohol Use: Not on file No tobacco use No alcohol use. No recreational drug use. No caffeinated drinks. Vital Signs Vitals: 06/20/25 1335 BP: 135/86 BP Location: Left arm Patient Position: Sitting Pulse: 77 Temp: 36.5 ??C (97.7 ??F) SpO2: 98% Weight: 92.3 kg (203 lb 8 oz) Height: 165.1 cm (5' 5) Review of Systems General: 5 lbs weight gain Neurologic: numbness, headache Psychiatric: stress ENT: negative Respiratory: negative Musculoskeletal: joint pain Genitourinary: frequent urination Cardiovascular: negative Endocrine: negative Gastrointestinal: negative Objective Physical Exam GENERAL EXAM: General: No acute distress HEENT: Normal conjunctivae/sclerae, anicteric Cardiovascular: Regular rate and rhythm; there are no murmurs, gallops or rubs. Pulmonary: Clear to auscultation. NEUROLOGIC EXAM: Mental Status: Alert, normal spontaneous fluent speech with full comprehension. Cranial Nerves: EOMI, Face symmetric, hearing intact to conversation. Motor: No tremor Gait: Normal gait Assessment/Plan Diagnosis Plan 1. Primary narcolepsy without cataplexy modafiniL (PROVIGIL) 200 mg tablet 2. Obstructive sleep apnea syndrome 75 year old woman with narcolepsy without cataplexy and severe REM-dependent obstructive sleep apnea syndrome that is currently untreated. The patient's narcolepsy is currently unchanged and she is tolerating modafinil well. No adverse effects from modafinil reported. We will not make any changes to her narcolepsy treatment today. The patient has severe REM-dependent KAYLEE previously treated with auto-CPAP, but she is currently not and the last adherence data is from March 2024. I encouraged her to restart PAP therapy especially since she felt better on PAP. We discussed that the patient will need to get new mask, tubing, filters, etc. before restarting PAP. We also extensively discussed several other health concerns that the patient had including knee pain, leg swelling, neck pain, and heart problems. These problems are being evaluated and treated by other providers. I encouraged her to follow- up with her treating providers to discuss treatment options for these problems. She has several upcoming appointments. Plan 1. Continue modafinil 200 mg two tablets daily. The patient reports no adverse effects from this medication. Medication refilled. 2. Contact me if decide to restart CPAP. 3. Caution with driving while drowsy discussed. 4. Follow-up in 12 months, sooner if problems. My total encounter time on 06/20/2025 was 57 minutes which was spent in the activities documented in the note. The visit started at 1:57 pm and ended at 2:42 pm. This includes time spent prior to thevisit and after the visit in direct care of the patient. This time does not include time spent in any separately reportable services. Return in about 1 year (around 06/20/2026). Future Appointments Date Time Provider Department Center 07/03/2026 1:30 PM Jose F Farmer MD [facility] Thank you for allowing me to participate in the care of your patient. If you have any questions, feel free to contact me at [phone]. Sincerely, Jose F Farmer M.D., M.S.C.I. Professor of Neurology [facility] Diplomate in Neurology with added qualifications in Clinical Neurophysiology and Sleep Medicine documented in this encounter Plan of Treatment Not on file documented as of this encounter Visit Diagnoses Diagnosis Primary narcolepsy without cataplexy- Primary Obstructive sleep apnea syndrome Obstructive sleep apnea (adult) (pediatric) documented in this encounter Discontinued Medications Medication Sig Discontinue Reason Start Date End Da te modafiniL (PROVIGIL) 200 mg tabletIndications:Primar y narcolepsy without cataplexy Take 2 tablets by mouth once daily Reorder 05/02/2025 06/20/2025 documented as of this encounter Care Teams Supervisor Inspection And Testing Relationship Specialty Start Date End Date Viviana Adams MD PCP - General Family Practice 12/31/21 documented as of this encounter
[2025-06-21 14:57] LABS: Hematocrit 40.0 % (37.0-47.0); Hemoglobin 12.8 g/dL (12.0-15.0); Immature Granulocyte Percent A 0.1 % (0-0.5); Lymphocytes Absolute Auto 2.53 K/mm3 (0.9-3.2); Mean Corpuscular HGB Conc 32.0 g/dl (32-36); Mean Corpuscular Hemoglobin 29.4 pg (26-34); Mean Corpuscular Volume 91.7 fl (80-100); Nucleated Red Blood Cells Absolute Auto 0.000 K/mm3 (0.0-0.012); Nucleated Red Blood Cells Perc 0.0 % (0.0-0.2); Platelet Count Result 187 k/mm3 (150-375); Red Blood Count 4.36 M/mm3 (4.2-5.4); White Blood Count 7.0 K/mm3 (4.5-10.0)
--- OUTSIDE RECORDS SUMMARY | 2025-06-21 16:52 | XMS_ITS | Encounter Summary ---
Author Organization [facility] Address [address] [place] [address] Care Team Providers Care Tobacco Wrapping Machine Tender Name Role Phone Unavailable Primary Care Provider Unavailabl e Encounter Details Date Type Department Care Team (Late st Contact Info) Description 10/05/2023 Lab Requisition [facility] - Pathology Lab [address] [place] [address] Rick Gallo MD [address] [place] [address] Localized enlarged lymph nodes Social History Tobacco Use Types Packs/Day Years Used Date Smoking Tobacco: Never Assessed Comments Unknown Sex and Gender Information Value Date Recorded Sex Assigned at Not on file Legal Sex Female 3:43 PM COOLING PIPE INSPECTOR Gender Identity Not on file Sexual Orientation Not on file documented as of this encounter Plan of Treatment Not on file documented as of this encounter Procedures Procedure Name Priority Date/Time Associated Diagnosis Comments FLOW CYTOMETRY TISSUE PANEL Routine 10/05/2023 11:47 AM COOLING PIPE INSPECTOR Localized enlarged lymph nodes documented in this encounter Results * FLOW CYTOMETRY TISSUE PANEL (10/05/2023 11:47 AM COOLING PIPE INSPECTOR) Case Report Flow Cytometry Case: [id number] Authorizing Provider: Collected: 10/05/2023 11:47 AM Ordering Location: 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 The cells lack significant expression of CD5, CD10, and CD23. This population comprises 63.7% of events. T-cells: no immunophenotypic aberrancy detected CD4:CD8 ratio 8:1 with limited T-cells present in sample. A cytospin prepared from the flow cytometry specimen has been reviewed for environmental quality analyst purposes. 10/05/2023 5:13 PM [facility] Flow Cytometry Results Differential Result Comment Flow Cell Count /uL 80 Total Viability % 75.0 Lymphocytes % 91 Dim CD45 Region % 0 Monocytes % 1 Granulocytes % 6 10/05/2023 5:13 PM [facility] Reason for test Localized enlarged lymph nodes 785.6 10/05/2023 5:13 PM [facility] Client Specimen ID # [id number] 10/05/2023 5:13 PM [facility] Number of markers 16 were performed. A-2 Flow CD3 A-4 Flow CD10 A-6 Flow CD20 A-7 Flow CD23 A-12 Flow CD2 A-13 Flow CD4 A-16 Flow CD1a A-3 Flow CD5 A-5 Flow CD19 A-8 Flow CD34 A-9 Flow CD45 A-14 Flow CD7 A-15 Flow CD8 A-17 Flow CD30 A-10 [place]+CD19+ A-11 Lambda+CD19+ 10/05/2023 5:13 PM [facility] Pathologist Location at [facility] 10/05/2023 5:13 PM [facility] Disclaimer Test performed at [facility], [address] [place] [address], [id number]. *The established laboratory minimum viability is 70%. [...] high complexity clinical testing. 10/05/2023 5:13 [address] COOLING PIPE INS[address]OR [facility] Embedded Images 5:13 PM COOLING PIPE INSPECTOR [facility] Pathology/Cytolo gy ENTIRE LYMPH NODE / Unknown 10/05/2023 11:47 AM COOLING PIPE INSPECTOR 10/05/2023 3:50 PM COOLING PIPE INSPECTOR Rick Gallo MD LAB - PATHOLOGY/CYT OLOGY ORDERABLES Final Result Performing Organization Address City/State/[facility] Co de Phone Number [facility] [address] [phone] documented in this encounter Visit Diagnoses Diagnosis Localized enlarged lymph nodes Enlargement of lymph nodes documented in this encounter
--- OUTSIDE RECORDS SUMMARY | 2025-06-21 16:52 | XMS_ITS | Encounter Summary ---
Author Organization [facility] [employer] [facility] Address [address] [place] [address] Care Team Providers Care Microstrategy Reports Developer Name Role Phone Viviana Adams MD Primary Care Provider Encounter Details Date Type Department Care Team (Late Contact Info) Description 09/21/2023 Telephone [facility] Oncology and Hematology [facility] [address] [place] [address] Aidan Hudson MD [address] [place] [address] [employer] [address] [place] [address] Social History Tobacco Use Types Packs/Day Years Used Date Smoking Tobacco: Never Smokeless Tobacco: Never Alcohol Use Standard Drinks/Week Comments Never 0 (1 standard drink = 0.6 oz pur e alcohol) Comments Unknown Sex and Gender Information Value Date Recorded Sex Assigned at Not on file Legal Sex Female 10:59 AM FOOT SPECIALIST Gender Identity Not on file Sexual Orientation Not on file documented as of this encounter Plan of Treatment Upcoming Encounters Date Type Department Care Team (Late Contact Info) Description 06/26/2025 1:00 PM CDT Office Visit [facility] Oncology and Hematology [facility] [address] [place] [address] [place] [address] [place], [place] [address] [address] [place] [address] documented as of this encounter Visit Diagnoses Not on filedocumented in this encounter Care Teams Microstrategy Reports Developer Relationship Specialty Start Date End Date Viviana Adams MD [address] [place] [phone] PCP - General Family Practice 08/25/23 documented as of this encounter
--- OUTSIDE RECORDS SUMMARY | 2025-06-21 16:52 | XMS_ITS | Data Portability ---
Author Organization [facility] Address [address] [place] [address] Assessment No assessment recorded. Plan of Treatment [...] dose or 50 mcg/0.25mL dose 10/11/2020 completed RA Blank, ND - SI 10/11/2020 15:59:49 COVID-19, mRNA, LNP-S, PF, 100 mcg/0.5mL dose or 50 mcg/0.25mL dose 11/08/2020 completed RA Rosa, [place] - SI 11/08/2020 13:21:01 Past Encounters Encounter ID Performer Location Encounter Start Date Encounter Closed Date Diagnosis/Indication Diagnosis SNOMED-CT Code Diagnosis ICD10 Code Diagnosis IMO Codes Diagnosis Note [id number] MD Avinash Rosa [address] [facility] [place] [address] 10/11/2020 11:50:01 10/12/2020 06:12:55 Administration of SARS-CoV-2 antigen vaccine [id number] Z23 [id number] MD Avinash Rosa 14 IM [address] [facility] [place] [address] 11/08/2020 11:41:28 11/09/2020 08:06:37 Administration of SARS-CoV-2 antigen vaccine [id number] Z23 Health Concerns Section Related Observation LastModified by Organization Detai ls LastModified Time None Recorded Concern Status LastModified by Organization Details LastModified Time None Recorded Advance Directives Directive None Recorded Payers Insurance Date Sequence Insurance Name Policy Number Policy Tucker Covered Member ID Tucker Member ID Guarantor Name 02/03/2024 2 [place] Peggy Weston [id number] Peggy Weston 02/03/2024 GENERIC MEDICARE - PART B (MOVED TO HOLD) Peggy Weston 11/09/2020 1 AET[employer] (MEDICARE REPLACEMENT/ ADVANTAGE - HMO) [id number] Peggy Weston [id number] Peggy Weston 02/03/2024 1 AETNA - [place] (MEDICARE REPLACEMENT/ ADVANTAGE - HMO) [id number] Peggy Weston [id number] Peggy Weston 02/03/2024 [place] [facility] Peggy Weston [id number] Peggy Weston OBGyn Episode No OBEpisode recorded.
--- OUTSIDE RECORDS SUMMARY | 2025-06-21 16:52 | XMS_ITS | Clinical Summary ---
Author Organization [facility] Address [address] [place] [address] Care Team Providers Care Bag Machine Operator Name Role Phone Viviana Adams MD Primary [...] Encounters Date Type Department Care Team Description 05/30/2025 External Device Data STL ABSTRACTION Provider, Abstract 05/29/2025 Telephone [facility] Oncology and Hematology - [place] [address] [address] Aidna Hudson MD Follow up questions 05/23/2025 External Device Data STL ABSTRACTION Provider, [...] on file Legal Sex Female 10:59 AM ROPE TOW OPERATOR Gender Identity Not on file Sexual Orientation Not on file Last Filed Vital Signs Vital Sign Reading Time Taken Comments Blood Pressure 130/79 11/07/2024 10:21 AM ROPE TOW OPERATOR Pulse 84 11/07/2024 10:21 AM ROPE TOW OPERATOR Temperature 36 C (96.8 F) 11/07/2024 10:21 AM ROPE TOW OPERATOR Respiratory Rate 15 11/07/2024 10:21 AM ROPE TOW OPERATOR Oxygen Saturation 97% 11/07/2024 10:21 AM ROPE TOW OPERATOR Inhaled Oxygen Concentration - - Weight 92.1 kg (203 lb) 11/07/2024 10:21 AM ROPE TOW OPERATOR Height 165.1 cm (5' 5) 09/03/2023 12:01 PM ROPE TOW OPERATOR Body Mass Index 33.78 09/03/2023 12:01 PM ROPE TOW OPERATOR Plan of Treatment Upcoming Encounters Date Type Department Care Team (Late st Contact Info) Description 06/26/2025 1:00 PM CDT Office Visit [facility] Oncology and Hematology - [place] [address] [facility] [address] [place] [address] Aidan Hudson MD [address] [facility] [address] [place] [address] Health Maintenance Due Date Last Done Comments DTAP/TDAP/TD VACCINES (1 - Tdap) 1968 PNEUMOCOCCAL VACCINE 50+ YEA RS (1 of 2 - PCV) 1968 ZOSTER VACCINE (1 of 2) 1968 OSTEOPOROSIS SCREENING 2014 RSV VACCINE (60+ or ) (1 - 1-dose 75+ series) 2024 Medicare Advantage ([place]) Prev entative Visit/Annual Wellness Visit 09/07/2024 INFLUENZA VACCINE (#1) 2025 COVID-19 Vaccine (3 - 2025-26 season) 05/08/202512/2020, 10/11/2020 Insurance AETNA O MCR Care Teams Bag Machine Operator Relationship Specialty Start Date End Date Viviana Adams MD [address] [place] [phone] PCP - General Family Practice 08/25/23
--- OUTSIDE RECORDS SUMMARY | 2025-06-21 16:52 | XMS_ITS | Clinical Summary ---
Author Organization [facility] Address [address] [place] [address] Care Team Providers Care Novelty Balloon Assembler And Packer Name Role Phone Unavailable Primary Care Provider Unavailabl e Social History Tobacco Use Types Packs/Day Years Used Date Smoking Tobacco: Never Assessed Comments Unknown Sex and Gender Information Value Date Recorded Sex Assigned at Not on file Legal Sex Female 8:38 AM X RAY EQUIPMENT SERVICER Gender Identity Not on file Sexual Orientation [...] Vaccine ( - 2023-2 5 season) 2025 Influenza Adult (#1) 2025 Hepatitis A Vaccines Aged Out No long er eligible based on patient's age to complete this topic Meningococcal B Vaccine Aged Out No l onger eligible based on patient's age to complete this topic Meningococcal Vaccine Aged Out No armando hina eligible based on patient's age to complete this topic RSV Immunizations Under 20 Months Aged Out No longer eligible based on patient's age to complete this topic Insurance AETNA MEDICARE
--- OUTSIDE RECORDS SUMMARY | 2025-06-21 16:52 | XMS_ITS | Clinical Summary ---
Author Organization [facility] Address [address] [place] [address] Care Team Providers Care Car Icer Name Role Phone Unavailable Primary Care Provider Unavailabl e Source Comments [facility],non-owned Affiliates and Associated Physician Practices is amultiple site organization consisting of ambulatory clinics and hospital sitesin [place], [place], [place] and [place]. This disclosure is being madepursuant to the Care Everywhere program and may not contain all information available regarding this patient. Last updated 18.[facility] Social History Tobacco Use Types Packs/Day Years Used Date Smoking Tobacco: Never Assessed Comments Unknown Sex and Gender Information Value Date Recorded Sex Assigned at Not on file Legal Sex Female 3:43 PM MANNEQUIN MOLD MAKER Gender Identity Not on file Sexual Orientation [...] [place] Subscriber ID:Not on file (Home) Address: [facility] [place] [address] Payer ID:Not on file Group ID:Not on file Type:Self Pay Address: [place], [place] AETNA MEDICARE ADV SELF PAY NO INSURANCE Member Subscriber Plan / Payer (Ef fective for All Dates) Name:Anna Weston Member ID:Not on file Relation to Subscriber:Not on file Name:ANNA WESTON Subscriber ID:Not on file (Home) Address: [address] [place] [address] [place] [address] Payer ID:Not on file Group ID:Not on file Type:Self Pay Address: [place], [place]
--- OUTSIDE RECORDS SUMMARY | 2025-06-21 16:52 | XMS_ITS | Patient Health Record ---
Author Organization [facility] Address [address] [facility] [address] [place], [place] [id number] Care Team Providers Care Electronics Maintenance Technician Name Role Phone Tate Ko MD Primary Care Provider [phone] Tate Ko MD Unavailable Unavailable Reason For [...] Insured Coverage Start Date Coverage End Date [facility] [address] [place] [address] [phone] [id number] Peggy Weston Self - patient is the insured Medical (General) History Medical History History ICD Code MVP GERD Hypertension Sleep apnea Recurrent Bartholin's duct cysts Surgical History Surgery Date(Month/Year) Laparoscopic tubal ligation- hmorrhage - laparotomy hyperplasia of tubes 1975 NATO 1983 hemorrhoidectomy/anal fissure repair 198 9 Benign right breast biopsy Dang 1996
--- OUTSIDE RECORDS SUMMARY | 2025-06-21 16:52 | XMS_ITS | Clinical Summary ---
Author Organization [facility] 40 Address [address] [place] [address] Care Team Providers Care Hand Outside Cutter Name Role Phone Viviana Adams MD [...] mg total) by mouth daily 3 Active hydroCHLOROthia zide (HYDRODIURIL) 25 mg tablet Take 1 tablet (25 mg total) by mouth daily Active cyanocobalamin (vitamin B-12) 1,000 mcg tabletIndicatio ns:Prevention of Vitamin B12 Deficiency Take 1 tablet (1,000 mcg total) by mouth once a week Active modafiniL (PROVIGIL) 200 mg tabletIndicatio ns:Primary narcolepsy without cataplexy Take 2 tablets (400 mg total) by mouth daily 180 tablet 1 5 Active modafiniL (PROVIGIL) 200 mg tabletIndicatio ns:Primary narcolepsy without cataplexy Take 2 tablets by mouth once daily 180 tablet 06/20/20 25 Discontinu ed(Reorder ) Active Problems Problem Noted Date Diagnosed Date Jaw pain 06/16/2017 Hypertension 10/04/2012 Obesity 10/04/2012 Obstructive sleep apnea syndrome 03/13/2011 Narcoleptic syndrome 10/15/2009 Encounters Date Type Department Care Team Description 06/20/2025 1:30 PM CDT Office Visit [facility] Medicine Neuro Sleep [address] [place] [address] 6th [address] [place] [phone] Jose F Farmer MD 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); Obstructive sleep apnea syndrome from Last 3 Months Medical History Medical History Date Comments Narcolepsy KAYLEE (obstructive sleep apnea) Hypertension CLL (chronic lymphocytic leukemia) Social History Tobacco Use Types Packs/Day Years Used Date Smoking Tobacco: Never Smokeless Tobacco: Never Tobacco Cessation:Counseling Given: Not Answered Comments Unknown Sex and Gender Information Value Date Recorded Sex Assigned at Not on file Legal Sex Female 8:53 AM CATHETERIZATION LABORATORY TECHNICIAN Gender Identity Not on file Sexual Orientation [...] Mass Index 33.86 06/20/2025 1:35 PM CDT Plan of Treatment Health Maintenance Due Date Last Done Comments Depression Screening 1949 Fall Risk Assessment 1950 Hepatitis C Screening 1950 Osteoporosis Screening-Bone Density Scan 1949 Hepatitis B Screening 1967 Pneumococcal vaccine 65+ (1 of 2 - PCV) 1968 Well Visit 65+ 2014 Covid-19 Vaccine (2024-2 6 season) 2025 01/24/2022, 07/30/2021, 11/08/2020, Additional history exists Influenza Vaccine (#1) 2025 05/22/2024 DTaP/Tdap/Td Vaccine (2 - Td or Tdap) 06/03/2034 06/03/2024 Zoster Vaccine Completed 01/01/2023, 09/29/2022 Insurance [employer] MEDICARE GOLD [facility]LY [facility] MEDICARE [facility] Care Teams Hand Outside Cutter Relationship Specialty Start Date End Date Viviana Adams MD PCP - General Family Practice 12/31/21
== END 2025-06-21 14:36 | disposition home or self-care (01) ==
LOC: ANHLAB 14:36
PROVIDERS: PCP Family Medicine; Visit Provider Internal Medicine Hematology & Oncology
DX: C91.10 Chronic lymphocytic leukemia of B-cell type not having achieved remission (principal)
CPT/HCPCS: 36415; 83615; 85025

== ENCOUNTER 2025-06-23 14:22 | Outpatient (CLI) | payer MEDICARE, SELFPAY ==
--- OUTSIDE RECORDS SUMMARY | 2025-06-23 14:25 | XMS_ITS | Patient Health Record ---
Author Organization [facility] Address [address] [facility] [address] [place], [place] [id number] Care Team Providers Care Precision Assembler Bench Name Role Phone Tate Ko MD Primary [...] Insured Coverage Start Date Coverage End Date [facility] [address] [place] [address] [phone] [id number] Peggy Weston Self - patient is the insured Medical (General) History Medical History History ICD Code MVP GERD Hypertension Sleep apnea Recurrent Bartholin's duct cysts Surgical History Surgery Date(Month/Year) Laparoscopic tubal ligation- hmorrhage - laparotomy hyperplasia of tubes 1975 NATO 1983 hemorrhoidectomy/anal fissure repair 198 9 Benign right breast biopsy Dang 1996
--- OUTSIDE RECORDS SUMMARY | 2025-06-23 14:25 | XMS_ITS | Encounter Summary ---
Author Organization [facility] Address [address] [place] [address] Care Team Providers Care Program Aide Name Role Phone Viviana Adams MD Primary Care Provider Encounter Details Date Type Department Care Team (Late Contact Info) Description 09/21/2023 Telephone [facility] Oncology and Hematology [facility] [address] [place] [address] Aidan Hudson MD [address] [place] [address] [employer] [address] [place] [address] Social History Tobacco Use Types Packs/Day Years Used Date Smoking Tobacco: Never Smokeless Tobacco: Never Alcohol Use Standard Drinks/Week Comments Never 0 (1 standard drink = 0.6 oz pur e alcohol) Comments Unknown Sex and Gender Information Value Date Recorded Sex Assigned at Not on file Legal Sex Female 10:59 AM HAND BUFFER Gender Identity Not on file Sexual Orientation Not on file documented as of this encounter Plan of Treatment Upcoming Encounters Date Type Department Care Team (Late Contact Info) Description 06/26/2025 1:00 PM CDT Office Visit [facility] Oncology and Hematology [facility] [address] [place] [address] [place] [address] [place], [place] [address] [address] [place] [address] documented as of this encounter Visit Diagnoses Not on filedocumented in this encounter Care Teams Program Aide Relationship Specialty Start Date End Date Viviana Adams MD [address] [place] [phone] PCP - General Family Practice 08/25/23 documented as of this encounter
--- OUTSIDE RECORDS SUMMARY | 2025-06-23 14:25 | XMS_ITS | Clinical Summary ---
Author Organization [facility] Address [address] [place] [address] Care Team Providers Care Statistical Programmer Name Role Phone Unavailable Primary Care Provider Unavailabl e Source Comments [facility],non-owned Affiliates and Associated Physician Practices is amultiple site organization consisting of ambulatory clinics and hospital sitesin [place], [place], [place] and [place]. This disclosure is being madepursuant to the Care Everywhere program and may not contain all information available regarding this patient. Last updated 18.[facility] Social History Tobacco Use Types Packs/Day Years Used Date Smoking Tobacco: Never Assessed Comments Unknown Sex and Gender Information Value Date Recorded Sex Assigned at Not on file Legal Sex Female 3:43 PM DENITRATOR OPERATOR Gender Identity Not on file Sexual [...] WESTON Subscriber ID:Not on file (Home) Address: [facility] [place] [address] Payer ID:Not on file Group ID:Not on file Type:Self Pay Address: [place], [place] AETNA MEDICARE ADV SELF PAY NO INSURANCE Member Subscriber Plan / Payer (Ef fective for All Dates) Name:Anna Weston Member ID:Not on file Relation to Subscriber:Not on file Name:ANNA WESTON Subscriber ID:Not on file (Home) Address: [address] [place] [address] [place] [address] Payer ID:Not on file Group ID:Not on file Type:Self Pay Address: [place], [place]
--- OUTSIDE RECORDS SUMMARY | 2025-06-23 14:25 | XMS_ITS | Clinical Summary ---
Author Organization [facility] Address [address] [place] [address] Care Team Providers Care Family Medicine Physician Name Role Phone Unavailable Primary Care Provider Unavailabl e Social History Tobacco Use Types Packs/Day Years Used Date Smoking Tobacco: Never Assessed Comments Unknown Sex and Gender Information Value Date Recorded Sex Assigned at Not on file Legal Sex Female 8:38 AM SENIOR FIREWALL ENGINEER Gender Identity Not on file Sexual [...]
--- OUTSIDE RECORDS SUMMARY | 2025-06-23 14:25 | XMS_ITS | Clinical Summary ---
Author Organization [facility] Address [address] [place] [address] Care Team Providers Care Cna Name Role Phone Viviana Adams MD Primary [...] Encounters Date Type Department Care Team Description 06/22/[address] [facility] Oncology and Hematology - Luis Enrique [address] [place] [address] Aidan Hudson MD 05/30/2025 External Device Data STL ABSTRACTION Provider, Abstract 05/29/[address] [facility] Oncology and Hematology [facility] [address] [place] [phone] Aidan Hudson MD Follow up questions 05/23/2025 External [...] file Legal Sex Female 10:59 AM SALES OFFICE ADMINISTRATOR Gender Identity Not on file Sexual Orientation Not on file Last Filed Vital Signs Vital Sign Reading Time Taken Comments Blood Pressure 130/79 11/07/2024 10:21 AM SALES OFFICE ADMINISTRATOR Pulse 84 11/07/2024 10:21 AM SALES OFFICE ADMINISTRATOR Temperature 36 C (96.8 F) 11/07/2024 10:21 AM SALES OFFICE ADMINISTRATOR Respiratory Rate 15 11/07/2024 10:21 AM SALES OFFICE ADMINISTRATOR Oxygen Saturation 97% 11/07/2024 10:21 AM SALES OFFICE ADMINISTRATOR Inhaled Oxygen Concentration - - Weight 92.1 kg (203 lb) 11/07/2024 10:21 AM SALES OFFICE ADMINISTRATOR Height 165.1 cm (5' 5) 09/03/2023 12:01 PM SALES OFFICE ADMINISTRATOR Body Mass Index 33.78 09/03/2023 12:01 PM SALES OFFICE ADMINISTRATOR Plan of Treatment Upcoming Encounters Date Type Department Care Team (Late st Contact Info) Description 06/26/2025 1:00 PM CDT Office Visit [facility] Oncology and Hematology - Luis Enrique [address] [facility] [address] [place] [address] Aidan Hudson MD [address] [facility] [address] [place] [address] Health Maintenance Due Date Last Done Comments DTAP/TDAP/TD VACCINES (1 - Tdap) 1968 PNEUMOCOCCAL VACCINE 50+ YEA RS (1 of 2 - PCV) 1968 ZOSTER VACCINE (1 of 2) 1968 OSTEOPOROSIS SCREENING 2014 RSV VACCINE (60+ or ) (1 - 1-dose 75+ series) 2024 [place] ([place] Prev entative Visit/Annual Wellness Visit 09/07/2024 INFLUENZA VACCINE (#1) 2025 COVID-19 Vaccine ( season) 05/08/202512/2020, 10/11/2020 Procedures Procedure Name Priority Date/Time Associated Diagnosis Comments CBC WITH AUTODIFFERENTIAL Routine 2024 12:35 PM CDT from Last 3 Months Results * CBC WITH AUTODIFFERENTIAL (06/21/2025 12:35 PM CDT) Blood us Aidan Hudson MD HEMATOLOGY ORDERABLES Final Res ult from Last [address] [id number] A[employer] O MCR Care Teams Cna Relationship Specialty Start Date End Date Viviana Adams MD [address] [place] [phone] PCP - General Family Practice 08/25/23
--- OUTSIDE RECORDS SUMMARY | 2025-06-23 14:25 | XMS_ITS | Encounter Summary ---
Author Organization [facility] Address [address] [place] [address] Care Team Providers Care Dispatch Machine Runner Name Role Phone Unavailable Primary Care Provider Unavailabl e Encounter Details Date Type Department Care Team (Late st Contact Info) Description 10/05/2023 Lab Requisition [facility] - Pathology Lab [address] [place] [address] Rick Gallo MD [address] [place] [address] Localized enlarged lymph nodes Social History Tobacco Use Types Packs/Day Years Used Date Smoking Tobacco: Never Assessed Comments Unknown Sex and Gender Information Value Date Recorded Sex Assigned at Not on file Legal Sex Female 3:43 PM RETURNED CASE INSPECTOR Gender Identity Not on file Sexual Orientation Not on file documented as of this encounter Plan of Treatment Not on file documented as of this encounter Procedures Procedure Name Priority Date/Time Associated Diagnosis Comments FLOW CYTOMETRY TISSUE PANEL Routine 10/05/2023 11:47 AM RETURNED CASE INSPECTOR Localized enlarged lymph nodes documented in this encounter Results * FLOW CYTOMETRY TISSUE PANEL (10/05/2023 11:47 AM RETURNED CASE INSPECTOR) Case Report Flow Cytometry Case: [id number] Authorizing Provider: Collected: 10/05/2023 11:47 AM Ordering Location: [facility] Care Pathology Lab Received: 10/05/2023 03:50 PM Pathologist: Ana Zaragoza MD Specimen: Lymph Node, R INGUINAL 10/05/2023 5:13 PM RETURNED CASE INSPECTOR [facility] Final Diagnosis Lymph node, right inguinal, 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 The cells lack significant expression of CD5, CD10, and CD23. This population comprises 63.7% of events. T-cells: no immunophenotypic aberrancy detected CD4:CD8 ratio 8:1 with limited T-cells present in sample. A cytospin prepared from the flow cytometry specimen has been reviewed for quality systems specialist purposes. 10/05/2023 5:13 PM [facility] Flow Cytometry Results Differential Result Comment Flow Cell Count /uL 80 Total Viability % 75.0 Lymphocytes % 91 Dim CD45 Region % 0 Monocytes % 1 Granulocytes % 6 10/05/2023 5:13 PM [facility] Reason for test Localized enlarged lymph nodes 785.6 10/05/2023 5:13 PM [facility] Client Specimen ID # [id number] 10/05/2023 5:13 PM [facility] Number of markers 16 were performed. A-2 Flow CD3 A-4 Flow CD10 A-6 Flow CD20 A-7 Flow CD23 A-12 Flow CD2 A-13 Flow CD4 A-16 Flow CD1a A-3 Flow CD5 A-5 Flow CD19 A-8 Flow CD34 A-9 Flow CD45 A-14 Flow CD7 A-15 Flow CD8 A-17 Flow CD30 A-10 Rifle+CD19+ A-11 Lambda+CD19+ 10/05/2023 5:13 PM [facility] Pathologist Location at [facility] 10/05/2023 5:13 PM [facility] Disclaimer Test performed at [facility], [address] [place] [address], [address]. *The established laboratory minimum viability is 70%. [...] high complexity clinical testing. 10/05/2023 5:13 PM RETURNED CASE INSPECTOR [facility] PATH[facility] LAB Embedded Images 5:13 PM RETURNED CASE INSPECTOR [facility] Pathology/Cytolo gy ENTIRE LYMPH NODE / Unknown 10/05/2023 11:47 AM RETURNED CASE INSPECTOR 10/05/2023 3:50 PM RETURNED CASE INSPECTOR Rick Gallo MD LAB - PATHOLOGY/CYT OLOGY ORDERABLES Final Result Performing Organization Address City/State/[facility] Co de Phone Number [facility] PATH[facility]Y LAB [address] [phone] documented in this encounter Visit Diagnoses Diagnosis Localized enlarged lymph nodes Enlargement of lymph nodes documented in this encounter
--- OUTSIDE RECORDS SUMMARY | 2025-06-23 14:26 | XMS_ITS | Encounter Summary ---
Author Organization [facility] Address [address] [place] [address] Care Team Providers Care Construction Engineer Name Role Phone Viviana Adams MD Primary Care Provider Encounter Details Date Type Department Care Team (Late Contact Info) Description 06/22/2025 Orders Only [facility] Oncology and Hematology [facility] [address] [place] [address] Aidan Hudson MD [address] [place], [place] [address] [address] [place] [phone] Social History Tobacco Use Types Packs/Day Years Used Date Smoking Tobacco: Never Smokeless Tobacco: Never Alcohol Use Standard Drinks/Week Comments Never 0 (1 standard drink = 0.6 oz pur e alcohol) Comments Unknown Sex and Gender Information Value Date Recorded Sex Assigned at Not on file Legal Sex Female 10:59 AM SPACE BUYER Gender Identity Not on file Sexual Orientation Not on file documented as of this encounter Plan of Treatment Upcoming Encounters Date Type Department Care Team (Late Contact Info) Description 06/26/2025 1:00 PM CDT Office Visit [facility] Oncology and Hematology Luis Enrique [address] [place] [address] Aidan Hudson MD [address] [place], [place] [address] [address] [place] [phone] documented as of this encounter Procedures Procedure Name Priority Date/Time Associated Diagnosis Comments CBC WITH AUTODIFFERENTIAL Routine 2024 12:35 PM CDT documented in this encounter Results * CBC WITH AUTODIFFERENTIAL (06/21/2025 12:35 PM CDT) Blood us Aidan Hudson MD HEMATOLOGY ORDERABLES Final Res ult documented in this encounter Visit Diagnoses Not on filedocumented in this encounter Care Teams Construction Engineer Relationship Specialty Start Date End Date Viviana Adams MD [address] [place] [address] PCP - General Family Practice 08/25/23 documented as of this encounter
--- OUTSIDE RECORDS SUMMARY | 2025-06-23 14:26 | XMS_ITS | Clinical Summary ---
Author Organization [facility] [address] Address [address] [place] [address] Care Team Providers Care Facilities Maintenance Engineer Name Role Phone Viviana Adams MD [...] Description 06/20/2025 1:30 PM CDT Office Visit [facility] Medicine Neuro Sleep [address] [place] [address] 6th [address] [place] [phone] Jose F Farmer MD Primary narcolepsy without [...] on file Legal Sex Female 8:53 AM JOY OPERATOR HELPER Gender Identity Not on file Sexual Orientation [...] Completed 01/01/2023, 09/29/2022 Insurance [employer] MEDICARE GOLD [facility] MEDICARE [facility] Care Teams Facilities Maintenance Engineer Relationship Specialty Start Date End Date Viviana Adams MD PCP - General Family Practice 12/31/21
[2025-06-23 18:37] LABS: Anion Gap 5 mmol/L (4-12); Blood Urea Nitrogen 21 mg/dL (7-17); Calcium 9.0 mg/dL (8.4-10.2); Carbon Dioxide 32 mmol/L (22-30); Chloride 103 mmol/L (98-107); Estimated Glomerular Filt Rate > 60; Glucose 93 mg/dL (65-110); Potassium 3.5 mmol/L (3.4-5.0); Sodium 140 mmol/L (137-145)
== END 2025-06-23 14:23 | disposition home or self-care (01) ==
LOC: ANHGOSHLAB 14:22
PROVIDERS: PCP Family Medicine; Visit Provider Internal Medicine Hematology & Oncology
DX: C91.10 Chronic lymphocytic leukemia of B-cell type not having achieved remission (principal)
CPT/HCPCS: 36415; 80048; 83615

== ENCOUNTER 2025-07-03 07:16 | Outpatient (CLI) | payer MEDICARE, SELFPAY ==
--- NOTE | ~2025-07-03 | MR_ITS ---
EXAMINATION: MR knee LT wo con DATE: 07/03/2025 07:54 INDICATION: Medial meniscal tear TECHNIQUE: Magnetic resonance imaging (MRI) of the left knee was performed without intravenous contrast. Sequences included coronal PD-weighted FSE, coronal PD-weighted FS FSE, sagittal T2-weighted FSE, sagittal PD-weighted FS FSE and axial PD weighted fat saturated FSE. COMPARISON: Left knee radiographs dated 05/22/25 FINDINGS: Medial compartment: Medial extrusion of the medial meniscal body. Complex tear at the junction of the posterior body and posterior horn of the medial meniscus which extends from the inner free edge posteriorly and medially to the periphery of the meniscus at the junction of the body and posterior horn. Small region of partial-thickness chondral ulceration which appears to involve greater than 50% the cartilage thickness at the junction of the central and posterior aspect of the weightbearing medial femoral condyle. Additional deep chondral ulceration with mild subarticular edema-like signal change at the posterior central aspect of the medial tibial plateau. Lateral compartment: Partial-thickness cartilage loss along the weightbearing lateral femoral condyle and posterior fissuring and minimal underlying cortical irregularity at the posterior weightbearing lateral femoral condyle. Shallow chondral ulceration along the central aspect lateral tibial plateau. Patellofemoral compartment: Partial-thickness chondral ulceration with deeper fissuring and mild underlying subarticular edema-like signal change at the lateral patellar facet and apical ridge and at the medial trochlea. Ligaments and tendons: Anterior and posterior cruciate ligaments are normal. The medial collateral ligament and fibular collateral ligament complex are normal. Small enthesophytes at the tibial insertion of the distal patellar tendon. Mild tendinopathy without tear at the distal quadriceps tendon. The visualized medial and lateral hamstring tendons as well as the iliotibial band are normal. Fluid: Moderate-sized left knee joint effusion. No loose osteochondral bodies identified. Osseous/other: No fracture or pathologic marrow replacing process. IMPRESSION: 1. Complex tear at the junction of the posterior body and posterior horn of the medial meniscus. 2. Mild tricompartmental osteoarthritis with regions of moderate and high-grade chondromalacia in all 3 compartments. 4. Moderate-sized left knee joint effusion. Reviewed, dictated and finalized at location A.
== END 2025-07-03 07:17 | disposition home or self-care (01) ==
LOC: MICIMG 07:16
PROVIDERS: PCP Family Medicine; Visit Provider Orthopaedic Surgery
DX: S83.232D Complex tear of medial meniscus, current injury, left knee, subsequent encounter (principal); X58.XXXD Exposure to other specified factors, subsequent encounter; M25.462 Effusion, left knee; M17.12 Unilateral primary osteoarthritis, left knee
CPT/HCPCS: 73721

== ENCOUNTER 2025-08-08 13:16 | Outpatient (CLI) | payer MEDICARE, SELFPAY ==
--- OUTSIDE RECORDS SUMMARY | 2025-08-08 13:00 | XMS_ITS | Encounter Summary ---
Author Organization [facility] AJAY Hutson [facility] Address [address] [place] [address] Care Team Providers Care Employment Specialist Name Role Phone Viviana Adams MD Primary Care Provider Reason for Visit * Reason Comments Follow Up Cancer Encounter Details Date Type Department Care Team (Late st Contact Info) Description 08/08/2025 1:00 PM HANDS HANGER Office Visit [facility] Oncology and Hematology - [place] [address] [facility] [address] [place] [address] Aidan Hudson MD [address] [facility] [address] [place] [address] CLL (chronic lymphocytic leukemia) (CMS/HCC) (Primary Dx) Social History Tobacco Use Types Packs/Day Years Used Date Smoking Tobacco: Never Smokeless Tobacco: Never Tobacco Cessation:Counseling Given: Not Answered Alcohol Use Standard Drinks/Week Comments Never 0 (1 standard drink = 0.6 oz pur e alcohol) Comments Unknown Sex and Gender Information Value Date Recorded Sex Assigned at Not on file Legal Sex Female 10:59 AM HANDS HANGER Gender Identity Not on file Sexual Orientation Not on file documented as of this encounter Last Filed Vital Signs Vital Sign Reading Time Taken Comments Blood Pressure 140/76 08/08/2025 1:44 PM HANDS HANGER Pulse 91 08/08/2025 1:44 PM HANDS HANGER Temperature 36.7 C (98 F) 08/08/2025 1:44 PM HANDS HANGER Respiratory Rate 15 08/08/2025 1:44 PM HANDS HANGER Oxygen Saturation 98% 08/08/2025 1:44 PM HANDS HANGER Inhaled Oxygen Concentration - - Weight 89.2 kg (196 lb 9.6 oz) 08/08/2025 1:44 P M HANDS HANGER Height - - Body Mass Index 32.72 09/03/2023 12:01 PM HANDS HANGER documented in this encounter Progress Notes * Aidan Hudson MD - 08/08/2025 1:36 PM CST HEMATOLOGY / ONCOLOGY PROGRESS NOTE Patient Identification: Name: Peggy Weston Age: 75 y.o. 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 CURRENT TREATMENT Calquence 100 mg twice daily started July 2025. TREATMENT HISTORY SUBJECTIVE Patient came into the office for follow-up visit. She been taking Calquence and tolerating it well.Denies any nausea vomiting. No diarrhea and constipation. Neck puffiness has improved. No other newcomplaints. Review of system Constitutional: Patient did not mention fevers, sweats, weight and appetite stable, denies any tiredness and fatigue HEENT: Patient did not mention sinus congestion, hearing or vision problems Respiratory: Patient did not mention cough, dyspnea, wheeze Cardiovascular: Patient did not mention chest pain, exertional chest pressure/discomfort, nausea, syncope, shortness of breath GI: Patient did not mention constipation, diarrhea, dsyphagia, reflux symptoms, vomiting, melena : Patient did not mention dysuria, frequency, incontinence, urgency Integumentary system: no lymphadenopathy, sweats, flushing Musculoskeletal: Patient not mention: myalgia, arthralgia Neurological: Patient did not mention blurry or disturbed vision, numbness/weakness, dizziness Skin: No lumps, bumps or rashes. 12 point review of system was reviewed Objective: Vital signs in last 24 hours: As per nursing note Exam: General appearance: alert, cooperative, no distress, appears stated age Head: normocephalic, without obvious abnormality, atraumatic Eyes: conjunctivae/corneas clear, EOM's intact Ears: normal external ear canals AU Nose: Nares normal. Septum midline. Mucosa normal. No drainage or sinus tenderness Throat: Lips, mucosa, and tongue normal. Teeth and gums normal Neck: supple, symmetrical, trachea midline. Lungs: clear to auscultation bilaterally Heart: regular rate and rhythm, S1, S2 normal, no murmur, click, rub or gallop Abdomen: soft, non-tender. Bowel sounds normal. No masses, No organomegaly Extremities: extremities normal, atraumatic, no cyanosis or edema Skin: Skin color, texture, turgor normal. No rashes or lesions Lymph nodes: Neck adenopathy has resolved Exam as above PATH LABS Labs from August 25, 2023 showed WBC 6.7 hemoglobin 12.5 platelet 1 79,000 neutrophils 50% lymphocyte 32% Labs from April 18 showed WBC 6.7 hemoglobin 12.5 platelet 200,000 neutrophil 56% lymphocyte 24% LDH 282 creatinine 0.8 total bilirubin 0.6 Labs from October 25 show WBC 7.5 hemoglobin 12.9 platelet 187,000 neutrophils 54% lymphocyte 27% Labs on June 21 showed WBC 7 hemoglobin 12.8 platelet 187,000 Assessment: Plan: Patient Active Problem List Diagnosis Date Noted Jaw pain 06/16/2017 Hypertension 10/04/2012 Obesity 10/04/2012 Obstructive sleep apnea syndrome 03/13/2011 Narcoleptic syndrome 10/15/2009 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 CT chest and abdomen done on August 25 showed numerous mildly enlarged retroperitoneal axillary epigastric and abbie hepatis lymph node along with 7 mm irregular pulmonary nodule. CT pelvis showed extensive retroperitoneal lymphadenopathy. Patient is started Calquence 100 mg twice daily in July 2025 due to enlarging neck lymphadenopathy and facial puffiness. Lab stable. She has been tolerating Calquence well and improvement in the neck lymphadenopathy and puffiness. I plan to see her back in 2 months with repeat labs. Follow-up in 2 months 08/08/2025 Aidan Hudson MD Patient's identity confirmed yes Patient gave verbal consent to have these services billed to their insurance and expressed understanding that co-insurance and deductible may apply: yes Patient was located At home This encounter was completed via two-way synchronous audio only communication. Video technology available to provider, but patient not capable of, or doesn't consent to, use of video. Time spent in discussion with patient: 20 minutes. S HANGER documented in this encounter Plan of Treatment Upcoming Encounters Date Type Department Care Team (Late st Contact Info) Description 10/18/2025 11:15 AM HANDS HANGER Office Visit [facility] Oncology and Hematology [facility] [address] [facility] [address] [place] [address] Aidan Hudson MD [address] [facility] [address] [place] [address] Scheduled Orders Name Type Priority Associated Diagnoses Orde r Schedule CBC WITH DIFFERENTIAL Lab Stat CLL (chronic lymphocytic leukemia) (CMS/HCC) Expected: 10/03/2025, Expires: 08/08/2026 BASIC METABOLIC PANEL Lab Stat CLL (chronic lymphocytic leukemia) (CMS/HCC) Expected: 10/03/2025, Expires: 08/08/2026 documented as of this encounter Visit Diagnoses Diagnosis CLL (chronic lymphocytic leukemia) (CMS/HCC)- Primary Chronic lymphoid leukemia, without mention of having achieved remission documented in this encounter Care Teams Employment Specialist Relationship Specialty Start Date End Date Viviana Adams MD [address] [place] [phone] PCP - General Family Practice 08/25/23 documented as of this encounter
[2025-08-08 13:34] LABS: Hematocrit 39.4 % (37.0-47.0); Hemoglobin 12.6 g/dL (12.0-15.0); Immature Granulocyte Percent A 0.2 % (0-0.5); Lymphocytes Absolute Auto 7.25 K/mm3 (0.9-3.2); Mean Corpuscular HGB Conc 32.0 g/dl (32-36); Mean Corpuscular Hemoglobin 29.5 pg (26-34); Mean Corpuscular Volume 92.3 fl (80-100); Nucleated Red Blood Cells Absolute Auto 0.000 K/mm3 (0.0-0.012); Nucleated Red Blood Cells Perc 0.0 % (0.0-0.2); Platelet Count Result 160 k/mm3 (150-375); Red Blood Count 4.27 M/mm3 (4.2-5.4); White Blood Count 12.2 K/mm3 (4.5-10.0)
[2025-08-08 13:36] LABS: Schistocytes None Seen
[2025-08-08 13:37] LABS: Blood Urea Nitrogen 21 mg/dL (8-26); Carbon Dioxide 26 mmol/L (22-30); Chloride 104 mmol/L (98-109); Estimated Glomerular Filt Rate 48; Glucose 97 mg/dL (70-105); Ionized Calcium (POC) 1.20 mmol/L (1.11-1.31); Potassium 3.8 mmol/L (3.5-4.9); Sodium 142 mmol/L (138-146)
[2025-08-08 13:39] LABS: Anisocytosis 1+; Smudge Cells PRESENT
--- OUTSIDE RECORDS SUMMARY | 2025-08-08 14:14 | XMS_ITS | Encounter Summary ---
Author Organization [facility] Address [address] [place] [address] Care Team Providers Care Animal Researcher Name Role Phone Unavailable Primary Care Provider Unavailabl e Encounter Details Date Type Department Care Team (Late st Contact Info) Description 10/05/2023 Lab Requisition [facility] - Pathology Lab [address] [place] [address] Rick Gallo MD [address] [place] [address] Localized enlarged lymph nodes Social History Tobacco Use Types Packs/Day Years Used Date Smoking Tobacco: Never Assessed Comments Unknown Sex and Gender Information Value Date Recorded Sex Assigned at Not on file Legal Sex Female 3:43 PM VAUDEVILLE ACTOR Gender Identity Not on file Sexual Orientation Not on file documented as of this encounter Plan of Treatment Not on file documented as of this encounter Procedures Procedure Name Priority Date/Time Associated Diagnosis Comments FLOW CYTOMETRY TISSUE PANEL Routine 10/05/2023 11:47 AM VAUDEVILLE ACTOR Localized enlarged lymph nodes documented in this encounter Results * FLOW CYTOMETRY TISSUE PANEL (10/05/2023 11:47 AM VAUDEVILLE ACTOR) Case Report Flow Cytometry Case: [id number] Authorizing Provider: Collected: 10/05/2023 11:47 AM Ordering Location: [facility] Care Pathology Lab Received: 10/05/2023 03:50 PM Pathologist: Ana Zaragoza MD Specimen: Lymph Node, R INGUINAL 10/05/2023 5:13 PM VAUDEVILLE ACTOR [facility] Final Diagnosis Lymph node, right inguinal, flow cytometric immunophenotypic analysis: - Mature B-cell lymphoma - See interpretation 10/05/2023 5:13 PM VAUDEVILLE ACTOR [facility] at [address] VAUDEVILLE ACTOR Flow Cytometry Interpretation Viability: 75% B-cells: monoclonal, kappa-restricted, express CD19 and CD20. The cells lack significant expression of CD5, CD10, and CD23. This population comprises 63.7% of events. T-cells: no immunophenotypic aberrancy detected CD4:CD8 ratio 8:1 with limited T-cells present in sample. A cytospin prepared from the flow cytometry specimen has been reviewed for quality measurement specialist purposes. 10/05/2023 5:13 PM [facility] Flow Cytometry Results Differential Result Comment Flow Cell Count /uL 80 Total Viability % 75.0 Lymphocytes % 91 Dim CD45 Region % 0 Monocytes % 1 Granulocytes % 6 10/05/2023 5:13 PM [facility] Reason for test Localized enlarged lymph nodes 785.6 10/05/2023 5:13 PM [facility] Client Specimen ID # [id number] 10/05/2023 5:13 PM [facility] Number of markers 16 were performed. A-2 Flow CD3 A-4 Flow CD10 A-6 Flow CD20 A-7 Flow CD23 A-12 Flow CD2 A-13 Flow CD4 A-16 Flow CD1a A-3 Flow CD5 A-5 Flow CD19 A-8 Flow CD34 A-9 Flow CD45 A-14 Flow CD7 A-15 Flow CD8 A-17 Flow CD30 A-10 Ezel+CD19+ A-11 Lambda+CD19+ 10/05/2023 5:13 PM [facility] Pathologist Location at [facility] 10/05/2023 5:13 PM [facility] Disclaimer Test performed at [facility], [address] [place] [address], [id number]. *The established laboratory minimum viability is 70%. [...] high complexity clinical testing. 10/05/2023 5:13 PM VAUDEVILLE ACTOR [facility] PATH[facility] LAB Embedded Images 5:13 PM VAUDEVILLE ACTOR [facility] PATH[facility] LAB Pathology/Cytolo gy ENTIRE LYMPH NODE / Unknown 10/05/2023 11:47 AM VAUDEVILLE ACTOR 10/05/2023 3:50 PM VAUDEVILLE ACTOR Rick Gallo MD LAB - PATHOLOGY/CYT OLOGY ORDERABLES Final Result Performing Organization Address City/State/[facility] Co de Phone Number [facility] PATHOLOGY LAB [address] [phone] documented in this encounter Visit Diagnoses Diagnosis Localized enlarged lymph nodes Enlargement of lymph nodes documented in this encounter
--- OUTSIDE RECORDS SUMMARY | 2025-08-08 14:14 | XMS_ITS | Encounter Summary ---
Author Organization [facility] [employer] [facility] Address [address] [place] [address] Care Team Providers Care Lab Engineer Name Role Phone Viviana Adams MD Primary Care Provider Encounter Details Date Type Department Care Team (Late Contact Info) Description 09/21/[address] [facility] Oncology and Hematology [facility] [address] [place] [address] Aidan Hudsno MD [address] [place], [place] [address] [address] [place] [address] Social History Tobacco Use Types Packs/Day Years Used Date Smoking Tobacco: Never Smokeless Tobacco: Never Alcohol Use Standard Drinks/Week Comments Never 0 (1 standard drink = 0.6 oz pur e alcohol) Comments Unknown Sex and Gender Information Value Date Recorded Sex Assigned at Not on file Legal Sex Female 10:59 AM SCALDER Gender Identity Not on file Sexual Orientation Not on file documented as of this encounter Plan of Treatment Upcoming Encounters Date Type Department Care Team (Late st Contact Info) Description 10/18/2025 11:15 AM SCALDER Office Visit [facility] Oncology [facility] Hematology [facility] [address] [place] [address] Aidan Hudson MD [address] [place], [place] [address] [address] [place] [address] documented as of this encounter Visit Diagnoses Not on filedocumented in this encounter Care Teams Lab Engineer Relationship Specialty Start Date End Date Viviana Adams MD [address] [place] [phone] PCP - General Family Practice 08/25/23 documented as of this encounter
--- OUTSIDE RECORDS SUMMARY | 2025-08-08 14:14 | XMS_ITS | Encounter Summary ---
Author Organization [facility] Address [address] [place] [address] Care Team Providers Care Independent Marketing Consultant Name Role Phone Viviana Adams MD Primary Care Provider Encounter Details Date Type Department Care Team (Late Contact Info) Description 07/27/2025 Specialty Pharmacy [facility] [address] [place] [address] Vicenta Fonseca, PHARMACIST Social History Tobacco Use Types Packs/Day Years Used Date Smoking Tobacco: Never Smokeless Tobacco: Never Alcohol Use Standard Drinks/Week Comments Never 0 (1 standard drink = 0.6 oz pur e alcohol) Comments Unknown Sex and Gender Information Value Date Recorded Sex Assigned at Not on file Legal Sex Female 10:59 AM STOCKING INSPECTOR Gender Identity Not on file Sexual Orientation Not on file documented as of this encounter Plan of Treatment Upcoming Encounters Date Type Department Care Team (Late st Contact Info) Description 10/18/2025 11:15 AM STOCKING INSPECTOR Office Visit [facility] Oncology and Hematology - [place] [address] [facility] [address] [place] [address] Aidan Hudson MD [address] [facility] [address] [place] [address] documented as of this encounter Visit Diagnoses Not on filedocumented in this encounter Care Teams Independent Marketing Consultant Relationship Specialty Start Date End Date Viviana Adams MD [address] [place] [address] PCP - General Family Practice 08/25/23 documented as of this encounter
--- OUTSIDE RECORDS SUMMARY | 2025-08-08 14:14 | XMS_ITS | Clinical Summary ---
Author Organization [facility] Address [address] [place] [address] Care Team Providers Care Out Of School Hours Care Worker Name Role Phone Unavailable Primary Care Provider Unavailabl e Social History Tobacco Use Types Packs/Day Years Used Date Smoking Tobacco: Never Assessed Comments Unknown Sex and Gender Information Value Date Recorded Sex Assigned at Not on file Legal Sex Female 8:38 AM HEAT TREAT TECHNICIAN Gender Identity Not on file Sexual [...] 75+ series) 2024 COVID-19 Vaccine ( - 2024-2 6 season) 2025 Influenza Adult (#1) 2025 Hepatitis [...]
--- OUTSIDE RECORDS SUMMARY | 2025-08-08 14:14 | XMS_ITS | Clinical Summary ---
Author Organization [facility] [employer] Address [address] [place] [address] Care Team Providers Care Cna Name Role Phone Unavailable Primary Care Provider Unavailabl e Source Comments [facility],non-owned Affiliates and Associated Physician Practices is amultiple site organization consisting of ambulatory clinics and hospital sitesin [place], [place], [place] and [place]. This disclosure is being madepursuant to the Care Everywhere program and may not contain all information available regarding this patient. Last updated 18.[facility] Social History Tobacco Use Types Packs/Day Years Used Date Smoking Tobacco: Never Assessed Comments Unknown Sex and Gender Information Value Date Recorded Sex Assigned at Not on file Legal Sex Female 3:43 PM REPAIR WELDER Gender Identity Not on file Sexual Orientation [...] CALENDAR YEAR 2024 COVID-19 VACCINE ( - 2024-2 6 season) 2025 INFLUENZA VACCINE (#1) 2025 HEPATITIS [...] WESTON Subscriber ID:Not on file (Home) Address: [facility] [place] [address] Payer ID:Not on file Group ID:Not on file Type:Self Pay Address: [place], [place] [employer] MEDICARE ADV SELF PAY NO INSURANCE Member Subscriber Plan / Payer (Ef fective for All Dates) Name:Anna Weston Member ID:Not on file Relation to Subscriber:Not on file Name:ANNA WESTON Subscriber ID:Not on file (Home) Address: [address] [place] [address] [place] [address] Payer ID:Not on file Group ID:Not on file Type:Self Pay Address: [place], [place]
--- OUTSIDE RECORDS SUMMARY | 2025-08-08 14:14 | XMS_ITS | Clinical Summary ---
Author Organization [facility] Robby vasquez Nicki Address [address] [place] [address] Care Team Providers Care Loss Prevention Auditor Name Role Phone Viviana Adams MD Primary [...] Effervescent 25 mEq 2 times daily. Active acalabrutinib maleate (CALQUENCE) 100 mg tablet Take 1 Tablet (100 mg) by mouth 2 times daily. 60 Tablet 4 07/27/2025 2:11 PM JUNIOR SALES ASSISTANT 06/26/2025 Active Active Problems Problem Noted Date Diagnosed Date Jaw pain 06/16/2017 Hypertension 10/04/2012 Obesity 10/04/2012 Obstructive sleep apnea syndrome 03/13/2011 Narcoleptic syndrome 10/15/2009 Encounters Date Type Department Care Team Description 08/08/2025 1:00 PM JUNIOR SALES ASSISTANT Office Visit [facility] Oncology and Hematology - [place] [address] [place] [address] Aidan Hudson MD CLL (chronic lymphocytic leukemia) (CMS/HCC) (Primary Dx) 07/27/2025 Specialty Pharmacy [facility] [address] [place] [address] [place] [address] Vicenta Fonseca, PHARMACIST 07/27/2025 Specialty Pharmacy [facility] [address] [place] [address] [place] [phone] Vicenta Fonseca, PHARMACIST 07/25/2025 Specialty Pharmacy [facility] [address] [place] [address] [place] [phone] Vicenta Fonseca, PHARMACIST 07/25/2025 Specialty Pharmacy [facility] [address] [place] [phone] Vicenta Fonseca, PHARMACIST 07/17/2025 Telephone [facility] Oncology and Hematology - [place] [address] [place] [phone] Aidan Hudson MD surgery questions 07/14/2025 Telephone [facility] Oncology and Hematology - [place] [address] [place] [phone] Aidan Hudson MD injections 06/30/2025 2:35 PM CDT Telephone Check Up [facility] Oncology and Hematology - [place] [address] [place] [address] Aidan Hudson MD CLL (chronic lymphocytic leukemia) (CMS/HCC) (Primary Dx) 06/30/2025 Specialty Pharmacy [facility] [address] [place] [address] [place] [address] Annemarie Cho, PHARMACIST 06/30/2025 Specialty Pharmacy [facility] [address] [place] [address] [place] [address] Vicenta Fonseca, PHARMACIST 06/28/2025 External Device Data STL ABSTRACTION Provider, Abstract 06/27/2025 External Device Data STL ABSTRACTION Provider, Abstract 06/27/2025 Orders Only [facility] Oncology and Hematology - [place] [address] [place] [address] Aidan Hudson MD 06/27/2025 Specialty Pharmacy [facility] [address] [facility] [place] [phone] Mirtha Haynes, PHARMACIST 06/26/2025 1:00 PM CDT Office Visit [facility] Oncology and Hematology [facility] [address] [place] [address] Aidan Hudson MD CLL (chronic lymphocytic leukemia) (CMS/HCC) (Primary Dx) 06/22/2025 Orders Only [facility] Oncology and Hematology [facility] [address] [place] [address] Aidan Hudson MD 05/30/2025 External Device Data STL ABSTRACTION Provider, Abstract 05/29/2025 Telephone [facility] Oncology and Hematology [facility] [address] [place] [address] Aidan Hudson MD Follow up questions 05/23/2025 [...] on file Legal Sex Female 10:59 AM JUNIOR SALES ASSISTANT Gender Identity Not on file Sexual Orientation Not on file Last Filed Vital Signs Vital Sign Reading Time Taken Comments Blood Pressure 140/76 08/08/2025 1:44 PM JUNIOR SALES ASSISTANT Pulse 91 08/08/2025 1:44 PM JUNIOR SALES ASSISTANT Temperature 36.7 C (98 F) 08/08/2025 1:44 PM JUNIOR SALES ASSISTANT Respiratory Rate 15 08/08/2025 1:44 PM JUNIOR SALES ASSISTANT Oxygen Saturation 98% 08/08/2025 1:44 PM JUNIOR SALES ASSISTANT Inhaled Oxygen Concentration - - Weight 89.2 kg (196 lb 9.6 oz) 08/08/2025 1:44 P M JUNIOR SALES ASSISTANT Height 165.1 cm (5' 5) 09/03/2023 12:01 PM JUNIOR SALES ASSISTANT Body Mass Index 32.72 09/03/2023 12:01 PM JUNIOR SALES ASSISTANT Plan of Treatment Upcoming Encounters Date Type Department Care Team (Late st Contact Info) Description 10/18/2025 11:15 AM JUNIOR SALES ASSISTANT Office Visit [facility] Oncology and Hematology - [place] [address] [facility] [address] [place] [address] Aidan Hudson MD [address] [facility] [address] [place] [address] Health Maintenance Due Date Last Done Comments DTAP/TDAP/TD VACCINES (1 - Tdap) 1968 PNEUMOCOCCAL VACCINE 50+ YEA RS (1 of 2 - PCV) 1968 ZOSTER VACCINE (1 of 2) 1968 OSTEOPOROSIS SCREENING 2014 RSV VACCINE (60+ or ) (1 - 1-dose 75+ series) 2024 [place] Prev entative Visit/Annual Wellness Visit 09/07/2024 INFLUENZA VACCINE (#1) 2025 COVID-19 Vaccine ( season) 05/08/202512/2020, 10/11/2020 Procedures Procedure Name Priority Date/Time Associated Diagnosis Comments BASIC METABOLIC PANEL Routine 06/23/2025 12:43 PM CDT CBC WITH AUTODIFFERENTIAL Routine 2024 12:35 PM CDT from Last 3 Months Results * BASIC METABOLIC PANEL (06/23/2025 12:43 PM CDT) Blood Aidan Hudson MD CHEMISTRY ORDERABLES Final Resu lt * CBC WITH AUTODIFFERENTIAL (06/21/2025 12:35 PM CDT) Blood Aidan Hudson MD HEMATOLOGY ORDERABLES Final Res ult from Last 3 Months Insurance AETNA [facility] RX AETNA Medicare Part D RX [facility] Medicare Part D Care Teams Loss Prevention Auditor Relationship Specialty Start Date End Date Viviana Adams MD [address] [place] [address] PCP - General Family Practice 08/25/23
--- OUTSIDE RECORDS SUMMARY | 2025-08-08 14:15 | XMS_ITS ---
Author Organization [facility] Address [address] [facility] [place] [address] Care Team Providers Care Hourly Shift Manager Name Role Phone Viviana Adams MD Primary Care Provider Chronic Lymphocytic Leukemia Status:Enrolled (Active) Start date:06/27/2025 Enrollment date:06/27/2025 Current support & services provided:Clinical Management, Refill Management, Benefits and PA Management, Financial Assistance Linked medications:acalabrutinib maleate (Active) Continued Care and Services Coordination
--- OUTSIDE RECORDS SUMMARY | 2025-08-08 14:15 | XMS_ITS | Clinical Summary ---
Author Organization [facility] [address] [place] [address] Care Team Providers Care Rotary Drum Dyer Name Role Phone Viviana Adams MD Primary [...] total) by mouth daily 180 tablet 1 06/29/2025 Active Active Problems Problem Noted Date Diagnosed Date Jaw pain 06/16/2017 Hypertension 10/04/2012 Obesity 10/04/2012 Obstructive sleep apnea syndrome 03/13/2011 Narcoleptic syndrome 10/15/2009 Encounters Date Type Department Care Team Description 07/25/2025 Orders Only ANISHA BASURTO SLEEP Scanning, Provider 06/20/2025 1:30 PM CDT Office Visit [facility] Medicine Neuro Sleep [address] [place] [address] Jose F Farmer MD Primary narcolepsy without [...] on file 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 Gender Identity Not on file Sexual [...] 1969 Well Visit 65+ 2014 Covid-19 Vaccine (5 - 2024-2 6 season) 2025 01/24/2022, 07/30/2021, 11/08/2020, Additional history exists Influenza Vaccine (#1) 2025 05/22/2024 DTaP/Tdap/Td Vaccine (2 - Td or Tdap) 06/03/2034 06/03/2024 Zoster Vaccine Completed 01/01/2023, 09/29/2022 Procedures Procedure Name Priority Date/Time Associated Diagnosis Comments SLEEP LAB/STUDY - RESULT 07/25/2025 4:59 PM 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
== END 2025-08-08 13:17 | disposition home or self-care (01) ==
LOC: ANHLAB 13:17
PROVIDERS: PCP Family Medicine; Visit Provider Internal Medicine Hematology & Oncology
DX: C91.10 Chronic lymphocytic leukemia of B-cell type not having achieved remission (principal)
CPT/HCPCS: 36415; 80047; 85025

== ENCOUNTER 2025-08-14 12:55 | Outpatient (CLI) | payer MEDICARE, SELFPAY ==
--- NOTE | 2025-08-14 13:00 | ECHO_ITS ---
Patient Info Name: Peggy Weston Age: 75 years : 1950 Gender: Female Ht: 65 in Wt: 195 lbs BSA: 2.05 m2 HR: 82 bpm BP: 124 / 76 mmHg Heart Rhythm: Sinus Rhythm Technical Quality: Fair Exam Date: 08/14/2025 1:13 PM Patient Status: O Admit Date: 08/14/2025 Exam Type: CA echo doppler color flow Complete two-dimensional, color flow and Doppler transthoracic echocardiogram is performed. Operations Program Manager: Lexii Mcrae Attending Provider: Reynaldo Dowell DO Summary 1. Complete two-dimensional, color flow and Doppler transthoracic echocardiogram is performed. 2. Left ventricular chamber dimension is normal. 3. Left ventricular systolic function is normal, estimated at 65-70. 4. The left ventricular diastolic function is abnormal. 5. E/e' 11 is mildly elevated. 6. Left atrial chamber dimension is mildly enlarged. 7. Right atrial chamber dimension is mildly enlarged. 8. There is mild aortic valve sclerosis. 9. The mitral valve has a moderately calcified annulus. 10. There is trace mitral valve regurgitation. 11. There is moderate tricuspid valve regurgitation. 12. Mild pulmonary hypertension, estimated pulmonary arterial systolic pressure is 46 mmHg. Left Ventricle E/e' 11 is mildly elevated. Left ventricular chamber dimension is normal. Left ventricular systolic function is normal, estimated at 65-70. The left ventricular diastolic function is abnormal. Right Ventricle Right ventricular chamber dimension is normal. Right ventricular systolic function is normal and with normal TAPSE 1.8 cm. Left Atria Left atrial chamber dimension is mildly enlarged. Right Atria Right atrial chamber dimension is mildly enlarged. Aortic Valve The aortic valve is trileaflet. There is mild aortic valve sclerosis. There is no aortic valve stenosis. There is no aortic valve regurgitation. Pulmonic Valve There is no pulmonic regurgitation. Mitral Valve The mitral valve has a moderately calcified annulus. There is no mitral valve stenosis. There is trace mitral valve regurgitation. Tricuspid Valve There is moderate tricuspid valve regurgitation. Mild pulmonary hypertension, estimated pulmonary arterial systolic pressure is 46 mmHg. Pericardium/Pleural There is no pericardial effusion. Inferior Vena Cava Normal inferior vena cava with >50% collapse upon inspiration consistent with normal right atrial pressure, 5 mmHg. Aorta The aortic root size at the sinus of Valsalva is normal. Left Ventricular Outflow Tract Name Value Normal LVOT 2D LVOT Diameter 1.9 cm LVOT Doppler LVOT Peak Velocity 126 cm/s LVOT Peak Gradient 6 mmHg LVOT Mean Gradient 3 mmHg LVOT VTI 24 cm LVOT VTI/AV VTI Ratio 0.9 LVOT Stroke Volume 69 ml LVOT CO 4.8 l/min LVOT CI 2.3 l/min/m2 Pulmonic Valve Name Value Normal RVOT Doppler RVOT Peak Velocity 46 cm/s RVOT Peak Gradient 1 mmHg PV Doppler PV Peak Velocity 82 cm/s PV Peak Gradient 3 mmHg Mitral Valve Name Value Normal MV Diastolic Function MV E Peak Velocity 95 cm/s MV A Peak Velocity 68 cm/s MV E/A 1.4 MV Decel Time (PW) 240 ms MV Annular TDI MV E/e' (Septal) 13.7 MV E/e' (Lateral) 9.8 MV E/e' (Average) 11.8 Tricuspid Valve Name Value Normal TV Regurgitation Doppler TR Peak Velocity 320 cm/s TR Peak Gradient 32 mmHg Estimated PAP/RSVP RA Pressure 5 mmHg <=5 PA Systolic Pressure 46 mmHg <36 RV Systolic Pressure 46 mmHg <36 TV Annular TDI TV Lateral Marine s' Velocity 10.0 cm/s >=9.5 Aorta Name Value Normal Ascending Aorta Ao Root Diameter (MM) 2.4 cm Ao Root Diam Index (MM) 1.2 cm/m2 Aortic Valve Name Value Normal AV Doppler AV Peak Velocity 151 cm/s AV Peak Gradient 9 mmHg AV Mean Gradient 4 mmHg AV VTI 27 cm AV Area (Cont Eq VTI) 2.6 cm2 >=3.0 AV Area (Cont Eq Negrito) 2.4 cm2 AV DI (Negrito) 0.83 AV Regurgitation 2D LVOT Area 2.8 cm2 Ventricles Name Value Normal LV Dimensions 2D/MM IVS Diastolic Thickness (2D) 0.8 cm 0.6-1.0 LVID Diastole (2D) 4.1 cm 3.8-5.2 LVIW Diastolic Thickness (2D) 0.8 cm 0.6-0.9 LVID Systole (2D) 2.6 cm 2.2-3.5 LVOT Diameter 1.9 cm LV Mass (2D Cubed) 101.39 g 67.00-162.00 LV Mass Index (2D Cubed) 50 g/m2 43-95 Relative Wall Thickness (2D) 0.39 <=0.42 LV Fractional Shortening/Ejection Fraction 2D/MM LV Fractional Shortening (2D) 36 % 27-45 LV EF (2D Teichholz) 66 % LV Diastolic Volume (4C MOD) 46 ml LV EF (4C MOD) 78 % LV Diastolic Volume (2C MOD) 37 ml LV EF (2C MOD) 69 % LV Diastolic Volume (BP MOD) 42 ml 46-106 LV Diastolic Volume Index (BP MOD) 21 ml/m2 29-61 LV Systolic Volume (BP MOD) 11 ml 14-42 LV Systolic Volume Index (BP MOD) 6 ml/m2 8-24 LV EF (BP MOD) 73 % 54-74 LV Diastolic Length (4C) 7.4 cm LV Systolic Length (4C) 6.5 cm LV Stroke Volume (4C MOD) 36 ml Atria Name Value Normal LA Dimensions LA Dimension (MM) 5.0 cm 2.7-3.8 LA Volume (4C A-L) 73 ml LA Volume (BP A-L) 74 ml RA Dimensions RA Area (4C) 23.2 cm2 <=18.0 Report Signatures
== END 2025-08-14 12:56 | disposition home or self-care (01) ==
PROVIDERS: PCP Family Medicine; Visit Provider Internal Medicine Cardiovascular Disease
DX: I87.2 Venous insufficiency (chronic) (peripheral) (principal); I08.3 Combined rheumatic disorders of mitral, aortic and tricuspid valves
CPT/HCPCS: 93306